=== PATIENT | female | born 1945 | race Caucasian/White ===

== ENCOUNTER → 2019-10-30 12:59 | Outpatient (BNVA) | payer MEDICARE, SELFPAY | PROVIDERS: Family Provider Nurse Practitioner Family; PCP Nurse Practitioner Family; Visit Provider Internal Medicine Rheumatology | DX: M05.79 Rheumatoid arthritis with rheumatoid factor of multiple sites without organ or systems involvement (principal); M15.0 Primary generalized (osteo)arthritis; Z11.1 Encounter for screening for respiratory tuberculosis; Z79.899 Other long term (current) drug therapy | CPT/HCPCS: 71046; 99213 ==

== ENCOUNTER 2019-10-30 14:16 | Outpatient (CLI) | payer MEDICARE, SELFPAY ==
--- NOTE | 2019-10-30 14:27 | XR_ITS ---
WS: [id number] CHEST 2 VIEWS HISTORY: rheumatoid arthritis COMPARISON: 06/23/2010 Lungs: Mild pulmonary hyperinflation. No pneumonia. No pulmonary nodule or mass. No pleural effusion. Small calcific densities in the RIGHT upper chest. Cardiac size: Normal. Mediastinum/Aorta: Mild atherosclerosis aorta. Bones: Normal. XR/XR chest 2V* [id number] IMPRESSION: Stable chest since 06/23/2010. Mild hyperinflation.
== END 2019-10-30 14:17 | disposition home or self-care (01) ==
LOC: RADWPI 14:22
PROVIDERS: Family Provider Nurse Practitioner Family; PCP Nurse Practitioner Family; Visit Provider Internal Medicine Rheumatology
DX: M05.79 Rheumatoid arthritis with rheumatoid factor of multiple sites without organ or systems involvement (principal)
CPT/HCPCS: 71046

== ENCOUNTER → 2020-05-25 11:58 | Outpatient (BNVA) | payer MEDICARE, SELFPAY | PROVIDERS: Family Provider Nurse Practitioner Family; PCP Nurse Practitioner Family; Visit Provider Internal Medicine Rheumatology | DX: M05.79 Rheumatoid arthritis with rheumatoid factor of multiple sites without organ or systems involvement (principal); Z79.899 Other long term (current) drug therapy; Z11.1 Encounter for screening for respiratory tuberculosis; M12.04 Chronic postrheumatic arthropathy [Jaccoud], hand; Z13.820 Encounter for screening for osteoporosis | CPT/HCPCS: 36415; 80076; 82565; 85025; 85651; 86140; 86480; 99214 ==

== ENCOUNTER → 2020-09-14 13:49 | Outpatient (BNVA) | payer MEDICARE, SELFPAY | PROVIDERS: Family Provider Nurse Practitioner Family; PCP Nurse Practitioner Family; Visit Provider Internal Medicine Rheumatology | DX: M05.79 Rheumatoid arthritis with rheumatoid factor of multiple sites without organ or systems involvement (principal); Z79.899 Other long term (current) drug therapy; M12.04 Chronic postrheumatic arthropathy [Jaccoud], hand; M85.80 Other specified disorders of bone density and structure, unspecified site | CPT/HCPCS: 36415; 80076; 82565; 85025; 85651; 86140; 99214 ==

== ENCOUNTER → 2021-01-05 13:24 | Outpatient (BNVA) | payer MEDICARE, SELFPAY | PROVIDERS: Family Provider Nurse Practitioner Family; PCP Nurse Practitioner Family; Visit Provider Internal Medicine Rheumatology | DX: M05.79 Rheumatoid arthritis with rheumatoid factor of multiple sites without organ or systems involvement (principal); Z79.899 Other long term (current) drug therapy; M12.04 Chronic postrheumatic arthropathy [Jaccoud], hand; M85.80 Other specified disorders of bone density and structure, unspecified site; R09.89 Other specified symptoms and signs involving the circulatory and respiratory systems | CPT/HCPCS: 99214 ==

== ENCOUNTER → 2021-10-18 10:29 | Outpatient (BNVA) | payer MEDICARE, SELFPAY | PROVIDERS: Family Provider Nurse Practitioner Family; PCP Nurse Practitioner Family; Visit Provider Internal Medicine Rheumatology | DX: M05.79 Rheumatoid arthritis with rheumatoid factor of multiple sites without organ or systems involvement (principal); Z79.899 Other long term (current) drug therapy | CPT/HCPCS: 80076; 82565; 85025; 86140 ==

== ENCOUNTER → 2021-10-31 15:08 | Outpatient (BNVA) | payer MEDICARE, SELFPAY | PROVIDERS: Family Provider Nurse Practitioner Family; PCP Nurse Practitioner Family; Visit Provider Internal Medicine Rheumatology | DX: M05.79 Rheumatoid arthritis with rheumatoid factor of multiple sites without organ or systems involvement (principal); M12.04 Chronic postrheumatic arthropathy [Jaccoud], hand; Z79.899 Other long term (current) drug therapy; M85.80 Other specified disorders of bone density and structure, unspecified site; Z71.89 Other specified counseling | CPT/HCPCS: 99214 ==

== ENCOUNTER → 2022-02-15 14:25 | Outpatient (BNVA) | payer MEDICARE, SELFPAY | PROVIDERS: Family Provider Nurse Practitioner Family; PCP Nurse Practitioner Family; Visit Provider Internal Medicine Rheumatology | DX: M05.79 Rheumatoid arthritis with rheumatoid factor of multiple sites without organ or systems involvement (principal); M12.04 Chronic postrheumatic arthropathy [Jaccoud], hand; Z79.899 Other long term (current) drug therapy; M85.80 Other specified disorders of bone density and structure, unspecified site; Z71.89 Other specified counseling | CPT/HCPCS: 36415; 80076; 82565; 85025; 86140; 99214 ==

== ENCOUNTER → 2022-06-01 13:36 | Outpatient (BNVA) | payer MEDICARE, SELFPAY | PROVIDERS: Family Provider Nurse Practitioner Family; PCP Nurse Practitioner Family; Visit Provider Internal Medicine Rheumatology | DX: M05.79 Rheumatoid arthritis with rheumatoid factor of multiple sites without organ or systems involvement (principal); Z79.899 Other long term (current) drug therapy; Z71.89 Other specified counseling; M12.00 Chronic postrheumatic arthropathy [Jaccoud], unspecified site; M85.80 Other specified disorders of bone density and structure, unspecified site; K21.9 Gastro-esophageal reflux disease without esophagitis | CPT/HCPCS: 36415; 80076; 82565; 85025; 86140; 99214 ==

== ENCOUNTER → 2022-09-04 14:38 | Outpatient (BNVA) | payer MEDICARE, SELFPAY | PROVIDERS: Family Provider Nurse Practitioner Family; PCP Nurse Practitioner Family; Visit Provider Internal Medicine Rheumatology | DX: M05.79 Rheumatoid arthritis with rheumatoid factor of multiple sites without organ or systems involvement (principal); Z79.899 Other long term (current) drug therapy; Z13.820 Encounter for screening for osteoporosis; Z71.89 Other specified counseling; M12.00 Chronic postrheumatic arthropathy [Jaccoud], unspecified site; M85.80 Other specified disorders of bone density and structure, unspecified site; K21.9 Gastro-esophageal reflux disease without esophagitis | CPT/HCPCS: 36415; 80076; 82565; 85025; 86140; 99214 ==

== ENCOUNTER → 2022-12-12 13:37 | Outpatient (BNVA) | payer MEDICARE, SELFPAY | PROVIDERS: Family Provider Nurse Practitioner Family; PCP Nurse Practitioner Family; Visit Provider Internal Medicine Rheumatology | DX: M05.79 Rheumatoid arthritis with rheumatoid factor of multiple sites without organ or systems involvement (principal); Z79.899 Other long term (current) drug therapy; Z13.820 Encounter for screening for osteoporosis; Z71.89 Other specified counseling | CPT/HCPCS: 36415; 80076; 82565; 85025; 86140; 99214 ==

== ENCOUNTER → 2023-01-25 11:58 | Outpatient (BNVA) | payer MEDICARE, SELFPAY | PROVIDERS: Family Provider Nurse Practitioner Family; PCP Nurse Practitioner; Visit Provider Nurse Practitioner | DX: E03.8 Other specified hypothyroidism (principal); E55.9 Vitamin D deficiency, unspecified | CPT/HCPCS: 80053; 80061; 82306; 82607; 84443 ==

== ENCOUNTER → 2023-03-13 12:58 | Outpatient (BNVA) | payer MEDICARE, SELFPAY | PROVIDERS: Family Provider Nurse Practitioner Family; PCP Nurse Practitioner; Visit Provider Internal Medicine Rheumatology | DX: M05.79 Rheumatoid arthritis with rheumatoid factor of multiple sites without organ or systems involvement (principal); Z79.899 Other long term (current) drug therapy; M19.90 Unspecified osteoarthritis, unspecified site; Z13.820 Encounter for screening for osteoporosis; Z71.89 Other specified counseling | CPT/HCPCS: 36415; 80076; 82565; 85025; 86140; 99214 ==

== ENCOUNTER → 2023-05-15 09:17 | Outpatient (BNVA) | payer MEDICARE, SELFPAY | PROVIDERS: Family Provider Nurse Practitioner Family; PCP Nurse Practitioner; Visit Provider Nurse Practitioner | DX: E03.8 Other specified hypothyroidism (principal); I10 Essential (primary) hypertension | CPT/HCPCS: 80053; 80061; 83036; 84443 ==

== ENCOUNTER → 2023-06-13 13:17 | Outpatient (BNVA) | payer MEDICARE, SELFPAY | PROVIDERS: Family Provider Nurse Practitioner Family; PCP Nurse Practitioner; Visit Provider Internal Medicine Rheumatology | DX: Z79.899 Other long term (current) drug therapy (principal); M05.79 Rheumatoid arthritis with rheumatoid factor of multiple sites without organ or systems involvement; Z13.820 Encounter for screening for osteoporosis; Z71.89 Other specified counseling | CPT/HCPCS: 99214 ==

== ENCOUNTER → 2023-10-24 13:42 | Outpatient (BNVA) | payer MEDICARE, SELFPAY | PROVIDERS: Family Provider Nurse Practitioner Family; PCP Nurse Practitioner; Visit Provider Internal Medicine Rheumatology | DX: Z79.899 Other long term (current) drug therapy (principal); M05.79 Rheumatoid arthritis with rheumatoid factor of multiple sites without organ or systems involvement | CPT/HCPCS: 80076; 82565; 85025; 86140 ==

== ENCOUNTER → 2023-10-30 09:57 | Outpatient (BNVA) | payer MEDICARE, SELFPAY | PROVIDERS: Family Provider Nurse Practitioner Family; PCP Nurse Practitioner; Visit Provider Nurse Practitioner | DX: J30.89 Other allergic rhinitis (principal); J30.2 Other seasonal allergic rhinitis; E03.8 Other specified hypothyroidism; R00.0 Tachycardia, unspecified; I10 Essential (primary) hypertension | CPT/HCPCS: 80048; 80061; 84443 ==

== ENCOUNTER → 2023-12-06 11:36 | Outpatient (BNVA) | payer MEDICARE, SELFPAY | PROVIDERS: Family Provider Nurse Practitioner Family; PCP Nurse Practitioner; Visit Provider Internal Medicine Rheumatology | DX: Z79.899 Other long term (current) drug therapy (principal); M05.79 Rheumatoid arthritis with rheumatoid factor of multiple sites without organ or systems involvement; Z13.820 Encounter for screening for osteoporosis; Z71.89 Other specified counseling | CPT/HCPCS: 80076; 99214 ==

== ENCOUNTER 2024-03-11 09:36 | Inpatient (IN) | payer MEDICARE, SELFPAY ==
[2024-03-11] VITALS (21 sets, daily range): BP systolic 99–141; BP diastolic 59–76; PULSE 70–79; RESP 16–31; TEMP 36.8; O2SAT 89–97; BMI 29.2
--- NOTE | 2024-03-11 09:51 | XRR_ITS ---
PROCEDURE INFORMATION: Exam: XR Chest Exam date and time: 03/11/2024 9:54 AM Age: 78 years old Clinical indication: Cough and dyspnea; Additional info: Dyspnea/cough TECHNIQUE: Imaging protocol: Radiologic exam of the chest. Views: 1 view. COMPARISON: CR XR chest 2V* [id number] 10/30/2019 2:32 PM FINDINGS: Lungs: Unremarkable. No consolidation. Pleural spaces: Unremarkable. No pleural effusion. No pneumothorax. Heart/Mediastinum: Unremarkable. No cardiomegaly. Advanced diffuse vascular calcification noted. Bones/joints: Unremarkable. Soft tissues: Lower chest likely external metallic artifacts are noted. XR/XR chest 1V portable [id number] IMPRESSION: No acute findings.
--- NOTE | 2024-03-11 09:52 | CT_ITS ---
WS: [id number] CT HEAD TECHNIQUE: Noncontrast CT of the head obtained from the skullbase to the vertex. CLINICAL INFORMATION: AMS COMPARISON: None. DLP: 1018.[address] scans at [facility] use at least one of these dose optimization techniques: automated e xposure control; mA and/or kV adjustment per patient size (includes targeted exams where dose is matc hed to clinical indication); or iterative reconstruction. FINDINGS: No evidence of intracranial hemorrhage or mass effect. Ventricular system and basal cisterns are tucker nt. Moderate small vessel changes with moderate parenchymal volume loss. Intracranial vascular calcif ication. No extra-axial fluid collections. Tiny chronic lacunar infarcts in the RIGHT basal ganglia. Paranasal sinuses and mastoid air cells are well aerated. .Normal visualized soft tissues. CT/CT head wo con* [id number] IMPRESSION: 1. No evidence of intracranial hemorrhage or mass effect. 2. Moderate small vessel changes with moderate parenchymal volume loss. 3. Intracranial vascular calcification. 4. No acute intracranial findings.
--- NOTE | 2024-03-11 10:04 | W.ED.WEAKNES ---
HPI - Weakness General: Chief complaint: Weakness Stated complaint: Weakness Time Seen by Provider: 03/11/24 09:44 Source: patient Mode of arrival: ambulatory History of Present Illness: 78-year-old female presents emergency room after some falls recently generalized been very weak. She is confused and disoriented at times she went to the restroom and then just could not get up off the toilet. 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 Patient is awake and alert. She has a history of rheumatoid arthritis she is on Enbrel and methotrexate and also has been intermittently on prednisone. Family reports she has generally been weakening. Complains of some mild dysuria. MD Complaint: generalized weakness Relieving factors: none Exacerbating factors: none Associated symptoms: Reports chills and confusion; Denies chest pain, melena, decreased appetite, diaphoresis, dysuria, easy bruising, fever(s), headache(s), myalgias, nausea, rash, short of breath, syncope or vomiting Review of Systems Const: Reports: chills; Denies: fever(s) or diaphoresis Card: Denies: chest pain or syncope Resp: Denies: dyspnea GI: Denies: abdominal pain, nausea, vomiting or melena : Denies: dysuria, urinary frequency or urinary urgency Musc: Denies: neck pain or back pain Skin/Breast: Denies: rash Neuro: Reports: confusion; Denies: headache(s) Arya/Lymph: Denies: easy bruising PFS ED PFSH: Medical History (Updated 03/11/24 @ 15:53 by Lobo Mcqueen DO) History of cardiovascular stress test in 2009 low risk for coronary events Osteoarthritis Seasonal and perennial allergic rhinitis Tachycardia sinus tachycardia, on metoprolol Essential hypertension Adult onset hypothyroidism Osteopenia after menopause Jaccoud's arthropathy of hand Other assisted (current) drug therapy High risk medication use Surgical History (Updated 03/11/24 @ 14:46 by Mindy Mckeon MD) H/O breast biopsy right, benign Family History (Updated 03/11/24 @ 14:47 by Mindy Mckeon MD) Mother Breast cancer Father CAD (coronary artery disease) Other Diabetes Denies family history of Rheumatoid arthritis Chronic kidney disease (CKD) Systemic lupus erythematosus (SLE) in adult Hypertension Social History Smoking and tobacco/nicotine status: never used tobacco/nicotine Second hand smoke exposure: No Alcohol intake: never Substance/Drug Use: never Adopted: No Caregiver/support person: No Lives independently: Yes Household members: spouse Housing: House Marital status: Number of children: 0 service: No Current occupational status: retired Do you think of yourself as: Straight/Heterosexual Current gender identity: Female Physical Exam Const: COMMON NORMALS: no acute distress GENERAL APPEARANCE: cooperative and comfortable ORIENTATION/CONSCIOUSNESS: Yes awake, Yes oriented to person, Yes oriented to place and Yes oriented to time HENMT: COMMON NORMALS: normocephalic, atraumatic and hearing grossly normal bilaterally HEAD & SCALP: normocephalic and atraumatic Resp: COMMON NORMALS: normal respiratory effort, No retractions, No use of accessory muscles and clear to auscultation bilaterally AUSCULTATION: clear to auscultation bilaterally Cardio: COMMON NORMALS: regular rate, regular rhythm and No murmurs present (Cardio) RATE: regular rate RHYTHM: regular rhythm GI: COMMON NORMALS: Soft to palpation and No hepatosplenomegaly present AUSCULTATION: Yes normoactive bowel sounds PALPATION: Yes Soft to palpation, No Tenderness to palpation present (GI), No Guarding due to palpation present (GI) and Yes No hepatosplenomegaly present Extremity: COMMON NORMALS: normal to inspection, capillary refill normal, no clubbing, cyanosis or edema, no calf tenderness and no pedal edema Neuro: SENSORIUM/ORIENTATION: Yes oriented to person, Yes oriented to place and Yes oriented to time Skin: COMMON NORMALS: no rashes or lesions noted GENERAL SKIN EXAM: no rashes or lesions noted Course Vital Signs: Vital signs: Vital Signs Temperature 98.3 F 03/11/24 09:41 Pulse Rate 76 03/11/24 14:45 Respiratory Rate 18 03/11/24 14:45 Blood Pressure 132/67 03/11/24 14:45 Pulse Oximetry 97 03/11/24 14:45 Oxygen Delivery Me thod Room Air 03/11/24 09:41 MDM - Weakness Medical Decision Making Patient has a mild cystitis mild encephalopathy lactic acid is elevated cultures done given IV fluids her blood pressure was soft initially improved with fluids. Start IV antibiotics and cultures will likely need to hold her methotrexate and Enbrel discussed with hospitalist orders written Medical Records I reviewed the patient's medical records. Lab Data I reviewed the patient's lab results. 03/11/24 11:00 03/11/24 11:00 Radiology Impressions Chest X-Ray 03/11/24 09:51 IMPRESSION: No acute findings. Head CT 03/11/24 09:52 IMPRESSION: 1. No evidence of intracranial hemorrhage or mass effect. 2. Moderate small vessel changes with moderate parenchymal volume loss. 3. Intracranial vascular calcification. 4. No acute intracranial findings. Abdomen/Pelvis CT 03/11/24 10:30 IMPRESSION: 1. Sigmoid diverticulosis. No evidence of acute diverticulitis. 2. Subsegmental atelectasis RIGHT lower lobe. 3. Hepatomegaly with diffuse fatty infiltration of liver. 4. Hydronephrosis in either kidney. 5. Tortuous infrarenal abdominal aorta. 6. No other acute findings. Laboratory Results WBC 4.18 10^3/uL (3.29-11.43) 03/11/24 11:00 RBC 4.83 10^6/uL (3.85-5.65) 03/11/24 11:00 Hgb 15.00 g/dL (11.27-16.99) 03/11/24 11:00 Hct 43.8 % (36-47) 03/11/24 11:00 MCV 90.7 fl (85-98) 03/11/24 11:00 MCH 31.1 pg (27-33) 03/11/24 11:00 MCHC 34.2 g/dL (30-55) 03/11/24 11:00 RDW 16.3 % (12.1-15.1) H 03/11/24 11:00 Plt Count 107 10^3/cmm (157-399) L 03/11/24 11:00 MPV 10.9 fL (7.4-10.4) H 03/11/24 11:00 Lymph % (Auto) Not Reportable 03/11/24 11:00 [place] % (Auto) Not Reportable 03/11/24 11:00 Lymph # (Auto) Not Reportable 03/11/24 11:00 [place] # (Auto) Not Reportable 03/11/24 11:00 Total Counted 100 (0-100) 03/11/24 11:00 Atypical Lymphs % 7.0 % (0-5) H 03/11/24 11:00 Absolute Neutrophils 2.5 10^3/cmm (1.4-6.5) 03/11/24 11:00 Segmented Neutrophils 51 % 03/11/24 11:00 Abs Segm Neuts (Man) 2.1 10/cmm (1.6-7.1) 03/11/24 11:00 Band Neutrophils 8.0 % 03/11/24 11:00 Abs Band Neuts (Man) 0.3 10^3/cmm (0.0-1.2) 03/11/24 11:00 Absolute Lymphocytes 1.3 10^3/cmm (1.2-3.4) 03/11/24 11:00 Lymphocytes (Manual) 23 % 03/11/24 11:00 Monocytes (Manual) 10.0 % 03/11/24 11:00 Absolute Monocytes 0.4 10^3/cmm (0.1-0.6) 03/11/24 11:00 Eosinophils (Manual) 0 % 03/11/24 11:00 Absolute Eosinophils 0.0 10^3/cmm (0.0-0.7) 03/11/24 11:00 Basophils (Manual) 0.0 % 03/11/24 11:00 Absolute Basophils 0.0 10^3/cmm (0.0-0.2) 03/11/24 11:00 Metamyelocytes 1.0 % 03/11/24 11:00 Platelet Estimate Decreased (Normal) L 03/11/24 11:00 Anisocytosis Trace 03/11/24 11:00 Sodium 132 mmol/L (136-145) L 03/11/24 11:00 Potassium 3.7 mmol/L (3.5-5.1) 03/11/24 11:00 Chloride 95 mmol/L (98-107) L 03/11/24 11:00 Carbon Dioxide 23 mmol/L (22-29) 03/11/24 11:00 Anion Gap 17.7 (5-19) 03/11/24 11:00 BUN 29 mg/dL (8-23) H 03/11/24 11:00 Creatinine 1.5 mg/dL (0.5-0.9) H 03/11/24 11:00 GFR Calculation Not Reportable 03/11/24 11:00 Glucose 98 mg/dL (65-115) 03/11/24 11:00 Calculated Osmolality 280 mOsm/kg (285-295) L 03/11/24 11:00 Lactic Acid 2.9 mmol/L (0.5-2.2) H 03/11/24 11:00 Lactic Acid (Sepsis) 1.5 mmol/L (0.5-2.2) 03/11/24 13:50 Calcium 8.1 mg/dL (8.5-10.5) L 03/11/24 11:00 Magnesium 2.2 mg/dL (1.7-2.3) 03/11/24 11:00 Total Bilirubin 1.0 mg/dL (0.15-1.2) 03/11/24 11:00 AST 341 U/L (0-32) H 03/11/24 11:00 ALT 201 U/L (0-33) H 03/11/24 11:00 Alkaline Phosphatase 77 U/L (35-105) 03/11/24 11:00 Troponin T Baseline 60 ng/L (0-10) H 03/11/24 11:00 Troponin T 120 Minute 47.56 ng/L (0-10) H 03/11/24 13:50 Delta Troponin T -12.44 ABS# (0-10) L 03/11/24 13:50 Total Protein 6.2 g/dL (6.6-8.7) L 03/11/24 11:00 Albumin 3.1 g/dL (3.5-5.2) L 03/11/24 11:00 Globulin 3.1 g/dL (1.3-4.6) 03/11/24 11:00 Lipase 163 U/L (13-60) H 03/11/24 11:00 Urine Color Dark yellow (Yellow) 03/11/24 11:58 Urine Appearance Slightly cloudy (CLEAR) 03/11/24 11:58 Urine pH 5 (5-7) 03/11/24 11:58 Ur Specific [place] 1.020 (1.005-1.030) 03/11/24 11:58 Urine Protein 1+ (Negative) H 03/11/24 11:58 Urine Glucose (UA) Norm (Normal) 03/11/24 11:58 Urine Ketones Negative (Negative) 03/11/24 11:58 Urine Blood Neg (Negative) 03/11/24 11:58 Urine Nitrate Negative (Negative) 03/11/24 11:58 Urine Bilirubin Neg (Negative) 03/11/24 11:58 Urine Urobilinogen Norm mg/dL (Negative) 03/11/24 11:58 Ur Leukocyte Esterase 2+ (Negative) H 03/11/24 11:58 Urine RBC 0-4 /hpf (0-2) H 03/11/24 11:58 Urine WBC 40-55 /hpf (0-5) H 03/11/24 11:58 Ur Squamous Epith Cells 0-4 /hpf (0-5) H 03/11/24 11:58 Amorphous Sediment Not Reportable 03/11/24 11:58 Urine Bacteria 1+ /hpf (NONE) H 03/11/24 11:58 Hepatitis A IgM Ab Non-reactive (Nonreactive) 03/11/24 11:00 Hep Bs Antigen Non-reactive (Nonreactive) 03/11/24 11:00 Hep B Core IgM Ab Non-reactive (Nonreactive) 03/11/24 11:00 Hepatitis C Antibody Non-reactive (Nonreactive) 03/11/24 11:00 All radiology interpretation(s) finalized by discharge Discharge Plan Discharge Patient Disposition: Admitted As Inpatient Admit Provider: Mindy Mckeon Clinical Impression: Seropositive rheumatoid arthritis of multiple joints, Cystitis, Elevated transaminase level Condition: Stable Coding Level of Care Code ED Research Quality Assurance Analyst for Ruby Bassett
--- NOTE | 2024-03-11 10:18 | ECG_ITS ---
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 Measurements Intervals [place] Rate: 77 P: -9 [place]: 145 QRS: -29 QRSD: 74 T: 150 QT: 405 QTc: 461 Interpretive Statements SINUS RHYTHM LOW QRS VOLTAGE IN PRECORDIAL LEADS [QRS DEFLECTION < 1.0 mV IN CHEST LEADS] POSSIBLE ANTERIOR MYOCARDIAL INFARCTION , PROBABLY OLD [30 ms Q WAVE IN V3/V4, OR R < 0.2 mV IN V4] INFERIOR MYOCARDIAL INFARCTION , PROBABLY OLD [40+ ms Q WAVE AND/OR ST/T ABNORMALITY IN II/aVF] No previous ECG available for comparison Electronically Signed On 03-11-2024 17:20:05 CDT by Magan Guzman M.D. [id number] f
--- NOTE | 2024-03-11 10:30 | CT_ITS ---
WS: [id number] CT ABDOMEN PELVIS TECHNIQUE: Noncontrast CT of the abdomen and pelvis with coronal and sagittal reformatted images. CLINICAL INFORMATION: Abdominal pain COMPARISON: None. DLP: 699.[address] scans at [facility] use at least one of these dose optimization techniques: automated e xposure control; mA and/or kV adjustment per patient size (includes targeted exams where dose is matc hed to clinical indication); or iterative reconstruction. FINDINGS: Subsegmental atelectasis RIGHT lower lobe. Diffuse fatty infiltration of the liver. Normal spleen. Normal GE junction. Noncontrast pancreas appears normal. Splenic artery calcification. Aortic calcification. Tortuous abdominal aorta. Adrenal glands are normal. No hydronephrosis in either kidn ey. Small increased attenuation RIGHT renal cyst likely hemorrhagic or proteinaceous. Small fat-conta ining umbilical hernia. A few prominent LEFT inguinal lymph nodes likely reactive. Advanced spondylit ic changes lumbar spine. Chronic anterior wedging at L2. Sigmoid diverticulosis. No evidence of acute diverticulitis. CT/CT abdomen pelvis wo con [id number] IMPRESSION: 1. Sigmoid diverticulosis. No evidence of acute diverticulitis. 2. Subsegmental atelectasis RIGHT lower lobe. 3. Hepatomegaly with diffuse fatty infiltration of liver. 4. Hydronephrosis in either kidney. 5. Tortuous infrarenal abdominal aorta. 6. No other acute findings.
--- NOTE | 2024-03-11 10:37 | PC.PHAR ---
PT UNSURE IF SHE TOOK HER MORNING MEDICATIONS BUT IS SURE SHE TOOK ALL HER MEDICATIONS YESTERDAY.
--- NOTE | 2024-03-11 11:35 | ECG_ITS ---
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 Measurements Intervals [place] Rate: 78 P: 24 AL: 156 QRS: -44 QRSD: 76 T: 118 QT: 375 QTc: 429 Interpretive Statements SINUS RHYTHM LEFT AXIS DEVIATION [QRS AXIS < -30] LOW QRS VOLTAGE IN PRECORDIAL LEADS [QRS DEFLECTION < 1.0 mV IN CHEST LEADS] POSSIBLE ANTERIOR MYOCARDIAL INFARCTION , PROBABLY OLD [30 ms Q WAVE IN V3/V4, OR R < 0.2 mV IN V4] Compared to ECG 03/11/2024 10:18:11 Left-axis deviation now present Myocardial infarct finding still present Electronically Signed On 03-11-2024 17:23:42 CDT by Magan Guzman M.D. [id number]
[2024-03-11 11:54] LABS: Hematocrit 43.8 % (36-47); Mean Corpuscular HGB Conc 34.2 g/dL (30-55); Mean Corpuscular Hemoglobin 31.1 pg (27-33); Mean Corpuscular Volume 90.7 fl (85-98); Mean Platelet Volume 10.9 fL (7.4-10.4); Platelet Count 107 10^3/cmm (157-399); Red Blood Count 4.83 10^6/uL (3.85-5.65); Red Cell Distribution Width 16.3 % (12.1-15.1); White Blood Count 4.18 10^3/uL (3.29-11.43)
[2024-03-11 12:18] LABS: Lactic Sepsis W/Reflex 2.9 mmol/L (0.5-2.2)
[2024-03-11 12:20] LABS: Troponin(5th) Baseline 60 ng/L (0-10)
[2024-03-11 12:27] LABS: Alanine Aminotransferase 201 U/L (0-33); Albumin Level 3.1 g/dL (3.5-5.2); Alkaline Phosphatase 77 U/L (35-105); Anion Gap 17.7 (5-19); Aspartate Amino Transferase 341 U/L (0-32); Blood Urea Nitrogen 29 mg/dL (8-23); Calcium 8.1 mg/dL (8.5-10.5); Carbon Dioxide 23 mmol/L (22-29); Chloride 95 mmol/L (98-107); Creatinine Clr Calc Pharmacy 28.8337; Globulin 3.1 g/dL (1.3-4.6); Glucose 98 mg/dL (65-115); Lipase 163 U/L (13-60); Magnesium 2.2 mg/dL (1.7-2.3); Osmolality Calculated 280 mOsm/kg (285-295); Potassium 3.7 mmol/L (3.5-5.1); Sodium 132 mmol/L (136-145); Total Protein 6.2 g/dL (6.6-8.7)
[2024-03-11 12:35] LABS: Add Urine Culture? Yes; Add Urine Microscopic? YES; Bacteria Urine 1+ /hpf; Bilirubin Urine Neg (Negative); Blood Urine Neg (Negative); Glucose Urine UA Norm (Normal); Ketones Urine Negative (Negative); Leukocyte Esterase Urine 2+ (Negative); Nitrate Urine Negative (Negative); Protein Urine 1+ (Negative); RBC Urine 0-4 /hpf (0-2); Squamous Epithelial Cell Urine 0-4 /hpf (0-5); Urine Appearance Slightly Cloudy (CLEAR); Urine Color Dark Yellow (Yellow); Urobilinogen Urine Norm (Negative); WBC Urine 40-55 /hpf (0-5); pH Urine 5 (5-7)
[2024-03-11] MEDS: levofloxacin-dextrose 5 % 750 MG/150 ML PREMIX 100 MG IV (12:40)
[2024-03-11] MEDS: sodium chloride 0.9% 1,503 ML 999 ML IV (12:40)
[2024-03-11 12:59] LABS: Slide Review Slide Review Perform
[2024-03-11 13:00] LABS: Absolute Segmented Neutrophil 2.1 10/cmm (1.6-7.1); Band Neutrophils Absolute 0.3 10^3/cmm (0.0-1.2); Eosinophils 0 %; Lymphocytes 23 %; Lymphocytes Absolute 1.3 10^3/cmm (1.2-3.4); Monocytes Absolute 0.4 10^3/cmm (0.1-0.6); Segmented Neutrophils 51 %; Total Cells Counted 100 (0-100)
[2024-03-11 13:01] LABS: Absolute Neutrophil 2.5 10^3/cmm (1.4-6.5); Anisocytosis Trace; Platelet Estimate Decreased (Normal)
[2024-03-11 13:27] LABS: Reflex Lactate Order REFLEX LACTIC ORDERD
[2024-03-11 13:53] LABS: Hepatitis A Antibody IgM Non-Reactive (Nonreactive); Hepatitis B Surface Antigen Non-Reactive (Nonreactive); Hepatitis C Virus Antibody Non-Reactive (Nonreactive)
[2024-03-11 14:11] LABS: Lactic Acid level (Lactate) 1.5 mmol/L (0.5-2.2)
[2024-03-11 14:13] LABS: Troponin 5 2HR 47.56 ng/L (0-10); Troponin 5 2HR Delta -12.44 ABS# (0-10)
--- NOTE | 2024-03-11 14:41 | PM.HP ---
Providers/Chief Complaint Admitting Physician: Mindy Mckeon MD Primary Care Provider: Charlie Moscoso, ANIMAL SHELTER MANAGER-C Chief Complaint: Weakness History of Present Illness Abraham Santa is a 78 year old female who presents to the emergency room with chief complaint of weakness. She was on the toilet this morning and was so weak she was not able to get herself up. She has been having progressively worsening generalized weakness for maybe 3 weeks. She had started using her 's walker to help her some. She has had weakness involving both her arms and her legs. One side is not weaker than the other. She has noticed particularly that she has difficulty getting herself up from seats. Even using her arms for support she does cannot seem to get up. She has had a few falls. One of them occurred when she was taking her dog to the vet and another a day or so later. She had a very large bruise to her left lower extremity associated with the falls. She required EMS assistance to get her up after at least one of them. She denies any acute injury beyond the bruising. No reported fevers. She has not had any headache or vision changes. She has a known history of rheumatoid arthritis for which she is chronically on Enbrel and prednisone. She takes 5 mg of prednisone daily. Does not recall the last time she took prednisone burst for an acute RA flare. She had been on methotrexate but this was stopped in November of this year due to elevation in liver enzymes. She has had a nonproductive cough for several weeks. Associated with this is some postnasal drainage. She carries a diagnosis of seasonal allergies. No sore throat or sores in her mouth. She has not had any difficulty breathing despite the cough. She has no history of pulmonary disease or known coronary artery disease. No reports of any chest pain. No hemoptysis. She denies abdominal pain. She has had diarrhea for around 3 weeks now. Stools are loose and watery and occur pretty much every time she goes to the bathroom somewhere between 5 and 10 times a day. No blood has been noted in her stools. She does not report any dysuria, urinary frequency or hematuria. Her rheumatoid arthritis is generally doing well without any acute flareup of her joints. She has noticed some facial swelling. No new sores. 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 She sleeps when he sleeps which is usually during the day and admits that she has not been resting well for some time. She does have somebody that comes out to the house from [employer] who helps her (Hellen at [phone]). Patient's daughter Roseline Santa lives out of state though some family is coming to assist. Roseline can be reached at [phone]. Normally Mrs. Santa can ambulate okay and attend to her ADLs without difficulty. She does not recall any episodes of acute vision changes or speech difficulties. No known history of stroke, coronary artery disease or kidney disease. She has been taking her medications as prescribed with no medication changes lately other than discontinuation of methotrexate in November due to elevation in liver enzymes. Workup in the emergency room today revealed evidence of an abnormal urinalysis there was some epithelial cells, soft blood pressures, elevated lactic acid level at 2.9, low platelets, elevation in BUN and creatinine from prior values and some mild hyponatremia in addition to elevation in lipase and transaminases. Baseline troponin was noted to be elevated at 60 though 2-hour delta demonstrated a downward trend. Patient was noted to have some oxygen saturations into the upper 80s and was transiently on oxygen therapy at 2 L by nasal cannula while in the emergency room. Patient denies any history of alcohol or drug use or smoking. She was treated empirically with Levaquin and some IV fluids and request was made for admission for further evaluation and treatment. On focused questioning, Mrs. Santa does admit to having removed a couple of ticks from her this year but not many. Has not had any other sick contacts to speak of beyond her . The weakness was her primary reason for coming in today followed by concerns about the ongoing diarrhea, facial swelling, persistent cough and general decline over the last few weeks. Review of Systems General: Reports: Other (ROS as per HPI or as otherwise noted here) Medications/Allergies Home Medications Medication Instructions Recorded Confirmed Last Taken Type aspirin 81 mg tablet,delayed 81 mg PO QDAY 10/30/19 03/11/24 03/10/24 History release cetirizine 10 mg tablet 10 mg PO DAILY #30 tabs 10/30/23 03/11/24 03/10/24 Rx levothyroxine 50 mcg tablet 50 mcg PO DAILY #90 tabs 10/30/23 03/11/24 03/10/24 Rx metoprolol tartrate 50 mg tablet 50 mg PO TID #90 tabs 10/30/23 03/11/24 03/10/24 Rx etanercept 50 mg/mL (1 mL) 50 mg SUBCUT .Q7days #4 mL 12/06/23 03/11/24 03/07/24 Rx subcutaneous syringe (Enbrel) prednisone 20 mg tablet See Rx Instructions PO .COMPLEX 03/04/24 03/11/24 Unknown Rx PRN joint pain flare #30 tabs prednisone 5 mg tablet 5 mg PO DAILY #30 tabs 03/04/24 03/11/24 03/10/24 Rx folic acid 1 mg tablet 1 mg PO DAILY 03/11/24 03/11/24 03/10/24 History methotrexate sodium 2.5 mg tablet See Rx Instructions .Route .COMPLEX 03/11/24 03/11/24 Unknown History multivitamin-ferrous 1 tab PO QAM 03/11/24 03/11/24 03/10/24 History fumarate-folic acid 18 mg-400 mcg tablet (Complete Multivitamin-Multimineral) omega 2-dku-[id number]-fish oil 1,000 mg 1 cap PO DAILY 03/11/24 03/11/24 03/10/24 History (120 mg-180 mg) capsule (Fish Oil) pantoprazole 20 mg tablet,delayed See Rx Instructions .Route .COMPLEX 03/11/24 03/11/24 03/10/24 History release Allergies Allergy/AdvReac Type Severity Reaction Status Date / Time No Known Allergies Allergy Verified 12/06/23 11:57 PFSH Acute PFSH: Medical History (Updated 03/11/24 @ 19:01 by Mindy Mckeon MD) Seropositive rheumatoid arthritis of multiple joints Diagnosed 2003, on steroids and DMARD therapy History of cardiovascular stress test in 2009 low risk for coronary events Osteoarthritis Seasonal and perennial allergic rhinitis Tachycardia sinus tachycardia, on metoprolol Essential hypertension Adult onset hypothyroidism Osteopenia after menopause Jaccoud's arthropathy of hand Other skilled nursing (current) drug therapy High risk medication use Enbrel and prednisone 03/2024 Surgical History (Updated 03/11/24 @ 14:46 by Mindy Mckeon MD) H/O breast biopsy right, benign Family History (Updated 03/11/24 @ 14:47 by Mindy Mckeon MD) Mother Breast cancer Father CAD (coronary artery disease) Other Diabetes Denies family history of Rheumatoid arthritis Chronic kidney disease (CKD) Systemic lupus erythematosus (SLE) in adult Hypertension Social History Smoking and tobacco/nicotine status: never used tobacco/nicotine Second hand smoke exposure: No Alcohol intake: never Substance/Drug Use: never Adopted: No Caregiver/support person: No Lives independently: Yes Household members: spouse Housing: House Marital status: Number of children: 0 service: No Current occupational status: retired Do you think of yourself as: Straight/Heterosexual Current gender identity: Female Vitals/I&O/Wt Last Vital Signs Temp 98.3 F 03/11/24 09:41 Pulse 74 03/11/24 13:35 Resp 29 H 03/11/24 13:35 BP 127/66 03/11/24 13:35 Pulse Ox 91 03/11/24 13:35 O2 Del Method Room Air 03/11/24 09:41 03/10/24 03/11/24 03/11/24 22:59 06:59 14:59 Intake Total 150 / 150 Balance 150 / 150 Weight last 48 hrs Weight 72.575 kg Physical Exam Narrative: Patient is awake and alert, able to provide history. She looks a bit older than stated age and like she does not feel well. She has some chronic skin changes noted to her head and neck area. Of particular prominence are indented areas at the bridge of her nose where her glasses typically set. She says that it has been this way for some years but is more prominent currently with the facial edema she has been experiencing lately. Nasopharynx with some clear rhinorrhea noted. Extraocular movements are intact. Mucous membranes are slightly dry oral pharyngeally. Unable to fully visualize posterior oropharynx but looks to have some postnasal drainage in what I can see. Neck is supple without elevated JVD noted. No nuchal rigidity. Lungs are clear to auscultation without any rales rhonchi or wheezes noted though she does have a frequent wet sounding cough that is nonproductive during the course of my examination. Cardiovascular exam reveals a regular rhythm. Pulses are 1-2+ at wrists and dorsalis pedis bilaterally. Capillary refill 2 to 3 seconds. Abdomen is soft, nontender with positive bowel sounds. No flank tenderness. No suprapubic tenderness. Extremities without pitting edema. Left lower extremity with extensive bruising more laterally from ankle to knee and then again on the medial side of the foot in line with the first metatarsal region. Leg is not significantly tender to palpation. Skin overall is dry with some chronic sun exposure changes. Handgrip is equal. Ankle pumps are equal. Strength does seem weaker proximally at shoulders and hamstrings. Some muscle wasting is appreciated but not to what I would consider a pathologic degree. Toes are downgoing. No abnormal movements. Gait was not assessed. Data 03/11/24 11:00 03/11/24 11:00 Other Labs: Radiology Impressions Chest X-Ray 03/11/24 09:51 IMPRESSION: No acute findings. Head CT 03/11/24 09:52 IMPRESSION: 1. No evidence of intracranial hemorrhage or mass effect. 2. Moderate small vessel changes with moderate parenchymal volume loss. 3. Intracranial vascular calcification. 4. No acute intracranial findings. Abdomen/Pelvis CT 03/11/24 10:30 IMPRESSION: 1. Sigmoid diverticulosis. No evidence of acute diverticulitis. 2. Subsegmental atelectasis RIGHT lower lobe. 3. Hepatomegaly with diffuse fatty infiltration of liver. 4. Hydronephrosis in either kidney. 5. Tortuous infrarenal abdominal aorta. 6. No other acute findings. Laboratory Results WBC 4.18 10^3/uL (3.29-11.43) 03/11/24 11:00 RBC 4.83 10^6/uL (3.85-5.65) 03/11/24 11:00 Hgb 15.00 g/dL (11.27-16.99) 03/11/24 11:00 Hct 43.8 % (36-47) 03/11/24 11:00 MCV 90.7 fl (85-98) 03/11/24 11:00 MCH 31.1 pg (27-33) 03/11/24 11:00 MCHC 34.2 g/dL (30-55) 03/11/24 11:00 RDW 16.3 % (12.1-15.1) H 03/11/24 11:00 Plt Count 107 10^3/cmm (157-399) L 03/11/24 11:00 MPV 10.9 fL (7.4-10.4) H 03/11/24 11:00 Lymph % (Auto) Not Reportable 03/11/24 11:00 [place] % (Auto) Not Reportable 03/11/24 11:00 Lymph # (Auto) Not Reportable 03/11/24 11:00 [place] # (Auto) Not Reportable 03/11/24 11:00 Total Counted 100 (0-100) 03/11/24 11:00 Atypical Lymphs % 7.0 % (0-5) H 03/11/24 11:00 Absolute Neutrophils 2.5 10^3/cmm (1.4-6.5) 03/11/24 11:00 Segmented Neutrophils 51 % 03/11/24 11:00 Abs Segm Neuts (Man) 2.1 10/cmm (1.6-7.1) 03/11/24 11:00 Band Neutrophils 8.0 % 03/11/24 11:00 Abs Band Neuts (Man) 0.3 10^3/cmm (0.0-1.2) 03/11/24 11:00 Absolute Lymphocytes 1.3 10^3/cmm (1.2-3.4) 03/11/24 11:00 Lymphocytes (Manual) 23 % 03/11/24 11:00 Monocytes (Manual) 10.0 % 03/11/24 11:00 Absolute Monocytes 0.4 10^3/cmm (0.1-0.6) 03/11/24 11:00 Eosinophils (Manual) 0 % 03/11/24 11:00 Absolute Eosinophils 0.0 10^3/cmm (0.0-0.7) 03/11/24 11:00 Basophils (Manual) 0.0 % 03/11/24 11:00 Absolute Basophils 0.0 10^3/cmm (0.0-0.2) 03/11/24 11:00 Metamyelocytes 1.0 % 03/11/24 11:00 Platelet Estimate Decreased (Normal) L 03/11/24 11:00 Anisocytosis Trace 03/11/24 11:00 Sodium 132 mmol/L (136-145) L 03/11/24 11:00 Potassium 3.7 mmol/L (3.5-5.1) 03/11/24 11:00 Chloride 95 mmol/L (98-107) L 03/11/24 11:00 Carbon Dioxide 23 mmol/L (22-29) 03/11/24 11:00 Anion Gap 17.7 (5-19) 03/11/24 11:00 BUN 29 mg/dL (8-23) H 03/11/24 11:00 Creatinine 1.5 mg/dL (0.5-0.9) H 03/11/24 11:00 GFR Calculation Not Reportable 03/11/24 11:00 Glucose 98 mg/dL (65-115) 03/11/24 11:00 Calculated Osmolality 280 mOsm/kg (285-295) L 03/11/24 11:00 Lactic Acid 2.9 mmol/L (0.5-2.2) H 03/11/24 11:00 Lactic Acid (Sepsis) 1.5 mmol/L (0.5-2.2) 03/11/24 13:50 Calcium 8.1 mg/dL (8.5-10.5) L 03/11/24 11:00 Magnesium 2.2 mg/dL (1.7-2.3) 03/11/24 11:00 Total Bilirubin 1.0 mg/dL (0.15-1.2) 03/11/24 11:00 AST 341 U/L (0-32) H 03/11/24 11:00 ALT 201 U/L (0-33) H 03/11/24 11:00 Alkaline Phosphatase 77 U/L (35-105) 03/11/24 11:00 Troponin T Baseline 60 ng/L (0-10) H 03/11/24 11:00 Troponin T 120 Minute 47.56 ng/L (0-10) H 03/11/24 13:50 Delta Troponin T -12.44 ABS# (0-10) L 03/11/24 13:50 Total Protein 6.2 g/dL (6.6-8.7) L 03/11/24 11:00 Albumin 3.1 g/dL (3.5-5.2) L 03/11/24 11:00 Globulin 3.1 g/dL (1.3-4.6) 03/11/24 11:00 Lipase 163 U/L (13-60) H 03/11/24 11:00 Urine Color Dark yellow (Yellow) 03/11/24 11:58 Urine Appearance Slightly cloudy (CLEAR) 03/11/24 11:58 Urine pH 5 (5-7) 03/11/24 11:58 Ur Specific [place] 1.020 (1.005-1.030) 03/11/24 11:58 Urine Protein 1+ (Negative) H 03/11/24 11:58 Urine Glucose (UA) Norm (Normal) 03/11/24 11:58 Urine Ketones Negative (Negative) 03/11/24 11:58 Urine Blood Neg (Negative) 03/11/24 11:58 Urine Nitrate Negative (Negative) 03/11/24 11:58 Urine Bilirubin Neg (Negative) 03/11/24 11:58 Urine Urobilinogen Norm mg/dL (Negative) 03/11/24 11:58 Ur Leukocyte Esterase 2+ (Negative) H 03/11/24 11:58 Urine RBC 0-4 /hpf (0-2) H 03/11/24 11:58 Urine WBC 40-55 /hpf (0-5) H 03/11/24 11:58 Ur Squamous Epith Cells 0-4 /hpf (0-5) H 03/11/24 11:58 Amorphous Sediment Not Reportable 03/11/24 11:58 Urine Bacteria 1+ /hpf (NONE) H 03/11/24 11:58 Hepatitis A IgM Ab Non-reactive (Nonreactive) 03/11/24 11:00 Hep Bs Antigen Non-reactive (Nonreactive) 03/11/24 11:00 Hepatitis C Antibody Non-reactive (Nonreactive) 03/11/24 11:00 Micro: Microbiology 03/11/24 11:00 Blood Culture - Preliminary Blood SPECIMEN COLLECTED 03/11/24 11:00 Blood Culture - Preliminary Blood SPECIMEN COLLECTED A&P Assessment and plan (1) Generalized weakness: Primary presenting symptoms today that has been progressively worsening over the last 3 to 4 weeks. Based on available information it seems to be more proximal muscle weakness involving upper and lower extremities. She is chronically on prednisone therapy so myopathy is a consideration. There is some loss of muscle mass but musculature is not particularly tender and in fact her joints are doing well at this time. Other inflammatory/immune processes such as myositis, PMR and the like could be considered. The fact that she has not been focusing on caring for herself indifference to caring for her who is on hospice also very likely contributor to some degree if not primary. There are abnormalities in the labs as outlined below that suggest potential for infectious or other systemic etiology. Seems less likely based on available information to be focal neurovascular event. She does have a chronic cough over the same period of time that is a bit concerning though I think is associated with allergies. Do not see other evidence of ascending symptoms and DTRs are weak but symmetrical at this time. No associated difficulty breathing beyond the cough. Weakness today was such that she was again unable to get herself up even attempting to use her arms. (2) Elevated transaminase level: Increase in AST and ALT without elevated bilirubin or alkaline phosphatase. Inflammatory, infectious, vascular and other etiologies within the differential. CT imaging of the abdomen demonstrated fatty liver. No known history of alcohol use or changes in medications lately. Initial thought was that this may be related to methotrexate but she has been off of it since November of this year due to elevation in transaminases per record review and her report. Tickborne infection, acute hepatitis, among other infections are considerations. With generalized weakness progressively worsening over the last few weeks muscular disease additionally within differential diagnosis as is cardiovascular disease. (3) Diarrhea: Diarrhea present for several weeks with 5-10 loose stools per day. With immunocompromise infectious source has to be considered. Cannot rule out malabsorption or other causes at this time. Likely a contributing factor to dehydration and acute kidney injury contributing to #1 progressively worsening over the last few weeks. (4) Acute kidney injury: Baseline creatinine 0.8-0.9 on review of labs from the past year. Value today 1.5 with BUN of 29. I suspect this is secondary to volume depletion from GI losses with reported diarrhea. Could be in part related to infection of either GI or urinary origin. Other than prednisone do not see obvious medications as potential contributors. Certainly could be a factor in the generalized weakness she is experiencing along with associated hyponatremia and hypochloremia both of which are mild. Has a normal anion gap. (5) Thrombocytopenia: Present on admission. No prior history of low platelets. Not currently on methotrexate which was stopped earlier this year due to elevated liver enzymes. She is on chronic aspirin therapy and also takes prednisone and PPI among other medications listed below. Viral or even bacterial infection a consideration in addition to medications. Platelet consumption from large bruising to her left lower extremity also within differential. No active bleeding at this time. (6) Elevated lipase: With initial value at 163. Has no associated abdominal pain or back pain but has had diarrhea for several weeks. Also with a persistent cough. Noncontrasted CT of the abdomen and pelvis did not reveal any abnormalities in region of pancreas. Cannot rule out primary pancreatitis given diarrhea but lack of other symptoms makes me think that this is less likely. May be secondary changes along the GI tract from either inflammatory, infectious or vascular etiology contributing. With increased creatinine from baseline imaging with contrast less than ideal presently. (7) Elevated troponin: Elevated baseline troponin with negative trending troponin delta after 2 hours. No report of chest pain. Has nonspecific EKG changes. No known history of coronary artery disease. Primary risk factors include history of RA and hypertension along with family history. Does take a baby aspirin daily. (8) Persistent cough for 3 weeks or longer: Cough predominantly nonproductive though at times with some phlegm, no hemoptysis has been present for about 3 weeks. This may be due to seasonal allergies based on clinical exam but also could be related to reflux. With unremarkable chest x-ray, lack of JVD and other evidence on physical exam of volume overload seems less likely to be from pulmonary edema but that is also within differential. Bacterial infection is a consideration as is viral. With other reported weakness, recurrent cough could be indication of aspiration/weak and pharyngeal muscles. No associated pleuritic or other chest pain. Does not feel particularly short of breath. (9) Abnormal urinalysis: Present on admission with positive leukocyte esterase and 40-55 white blood cells though also with some epithelial cells. She denies any urinary symptoms to speak of. Abnormalities could be related to reported history of diarrhea multiple times a day. Clinically with no urinary symptoms seems less likely to be primary source of presentation of weakness though certainly within the differential. She is status post 1 dose of Levaquin in the emergency room. Urine culture has been collected and is pending. (10) Seropositive rheumatoid arthritis of multiple joints: Currently doing well without any acute flareup of her joints by history. Is managed with prednisone and Enbrel. She had previously been on methotrexate but stopped it in November of this year secondary to elevation in liver enzymes. Follows with Dr. Carmen in rheumatology. Not known to have any pulmonary or cardiac involvement with her rheumatoid arthritis from review of clinic records. (11) High risk medication use: Chronically on steroids, 5 mg of prednisone daily. Has prescription for steroid burst to use for an acute RA flare but cannot recall the last time that she has taken it. She is on Enbrel with last dose this past Sunday, 2 days ago (2 days prior to admission). At risk of acute adrenal insufficiency under sufficiently stressful clinical condition. Immunocompromised broadening differential for presentation as well. (12) Essential hypertension: Primary hypertension potentially with a component related to chronic steroid use chronically managed with beta-blockade, had some lower range of normal blood pressures noted in the emergency room managed with fluids but had taken her usual medications today prior to presentation (13) Adult onset hypothyroidism: History of acquired hypothyroidis, on chronic levothyroxine, normal TSH value in October of this year (14) Tachycardia: History of sinus tachycardia managed with beta-blockade, review of previous records indicates likely associated with hypothyroidism (15) Seasonal and perennial allergic rhinitis: Chronic diagnosis which appears to be acutely exacerbated based on current examination likely contributing to cough, chronically on cetirizine Plan Elevated lactic acid, improved with hydration 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 Recurrent falls lately with hematoma but no known fractures Inpatient admission Check CK level PT, OT and speech evaluations IV fluids Check PT and INR, repeat CBC in am Tick panel is pending Hepatitis panel is pending Send stool studies Check baseline sed rate and CRP Repeat chemistries and lipase in am For now will try regular diet and monitor how she tolerates Continue serial cardiac enzymes and EKGs Check Echo Monitor I&Os Telemetry monitoring for at least the first 24 to 48 hours evaluating for arrthyhmia or acute clinical change Check Respiratory panel Empiric doxycycline currently given tick season Add flonase Continue home cetirizine PRN breathing treatments Status post one dose of levaquin in ED Follow up pending urine and blood cultures Status post Enbrel on Sunday03/09/24 Continuing prednisone currently at usual 5 mg dosing thouigh may have to consider holding is other source for weakness not identified PRN hydrocortisone given risk of acute adrenal insufficiency Continue metoprolol at a lower dosing and frequency than usual home schedule given soft blood pressures Continue home levothyroxine VTE prophylaxis: SCDs, not pharmacological with low platelets and large hematoma LLE GI Prophylaxis: PPI Antibiotics: s/p Levaquin x 1 dose 03/11; doxycycline started 03/11 for possible tick infection Pending studies: CK level, PT, INR, tick panel, hepatitis panel, sed rate, CRP, stool studies, respiratory panel, echocardiogram, 6-hour troponin, PT/OT/ST evaluations and a.m. labs ordered for 03/12 Telemetry: Currently ordered for monitoring of arrhythmias at x 24 to 48 hours particular given history of sinus tachycardia managed with beta-blockade in addition to presentation [place]: not currently indicated Line(s): peripheral IVs Disposition plan: Home with outpatient follow up to primary care and likely rheumatology anticipated. 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 Will need to be seen before the sedates. Depending on clinical course may benefit from outpatient therapies and assistance with medications in the home setting Code Status: Full Code Supportive care otherwise Discussed concerns and plans of care with nursing staff as described Findings, concerns and plans were discussed with patient and she was given an opportunity to ask questions Attestations Medical Necessity Statement*: Anticipated stay greater than two midnights in this 78-year-old with a history of rheumatoid arthritis manage chronically currently with prednisone and Enbrel. Last dose of Enbrel was 2 days ago. She presents with several weeks of clinical decline as outlined above. She has multiple abnormalities in labs and weakness to the extent that she was unable to get up today on her own. She is at high risk of rapid clinical decline given her immunocompromise status from high risk medication use combined with concerning indices such as elevated lactic acid, low platelets, elevated liver enzymes, increased BUN and creatinine from baseline, elevated baseline troponin, elevated lipase, abnormal urinalysis and low albumin level. Currently requiring IV fluids, antibiotic treatment, serial laboratory studies and other evaluations as described above. Coding Level of Care Code 70963 High Time for a total of 85 minutes, includes reviewing past or interval history, examining/interviewing patient, placing orders, discussing plan of care with staff and documenting encounter Diagnoses Generalized weakness R53.1 Elevated transaminase level R74.01 Diarrhea R19.7 Acute kidney injury N17.9 Thrombocytopenia D69.6 Elevated lipase R74.8 Elevated troponin R79.89 Persistent cough for 3 weeks or longer R05.3 Abnormal urinalysis R82.90 Seropositive rheumatoid arthritis of multiple joints M05.79 High risk medication use Z79.899 Essential hypertension I10 Adult onset hypothyroidism E03.8 Tachycardia R00.0 Seasonal and perennial allergic rhinitis J30.89; J30.2
[2024-03-11 15:42] LABS: Hepatitis B Core IgM Non-Reactive (Nonreactive)
--- NOTE | 2024-03-11 15:44 | ECG_ITS ---
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 Measurements Intervals Nemo Rate: 73 P: 34 NJ: 165 QRS: -35 QRSD: 72 T: 131 QT: 383 QTc: 423 Interpretive Statements SINUS RHYTHM PATTERN CONSISTENT WITH PULMONARY DISEASE INFERIOR MYOCARDIAL INFARCTION , PROBABLY OLD [40+ ms Q WAVE AND/OR ST/T ABNORMALITY IN II/aVF] Compared to ECG 03/11/2024 11:35:05 Left-axis deviation no longer present Myocardial infarct finding still present Electronically Signed On 03-11-2024 17:23:06 CDT by Magan Guzman M.D. [id number]
--- NOTE | 2024-03-11 17:36 | PC.NURSE ---
When the patient would fall asleep in the ER, her oxygen saturation numbers would drop to 88 or 89. I did not capture those numbers when entering vitals apparently. Since this continued to occur during her time in the ER since she would doze off and on quite a bit in the ER I placed the patient on 2 liters of oxygen. Patient does not usually use oxygen and may not need the oxygen at all unless when she falls asleep she may need to be on oxygen.
--- NOTE | 2024-03-11 17:44 | USCV_ITS ---
Abraham Santa Age: 78 Gender: F : 1945 Exam Date: 03/11/2024 19:15 Ordering Phys: Mindy Mckeon MD Technologist: RAMY Exam Location: [facility] [place] Indication: weakness, falls, history of rheumatoid arthritis on steroids / enbrel, low O2. BP: 113 / 67 HR: 63 Rhythm: Sinus Technical Quality: Adequate MEASUREMENTS (Male / Female) Normal Values 2D ECHO LV Diastolic Diameter PLAX 4.1 cm 4.2 - 5.9 / 3.9 - 5.3 cm IVS Diastolic Thickness 1.7 cm 0.6 - 1.0 / 0.6 - 0.9 cm IVS Systolic Thickness 2.4 cm LVPW Diastolic Thickness 1.7 cm 0.6 - 1.0 / 0.6 - 0.9 cm LVPW Systolic Thickness 1.2 cm LVOT Diameter 1.8 cm LV Ejection Fraction 2D Teich 55.7 % LV Ejection Fraction MOD 2C 51.6 % LV Ejection Fraction 2C AL 51.7 % LA Diameter 2.6 cm LA Sys Volume AL 36.2 cm cubed LA Sys Volume Index AL 20.1 cm cubed/m squared Aorta at Sinotubular Diameter 2.9 cm IVC Diameter 0.9 cm M-MODE LA Ao Ratio MM 1.0 AV Cusp Separation MM 1.0 cm DOPPLER AV Peak Velocity 198.0 cm/s LVOT Peak Velocity 120.0 cm/s AV Area Cont Eq vti 2.2 cm squared AV Area Cont Eq pk 1.6 cm squared MV Peak Velocity 120.3 cm/s MV Area PHT 2.3 cm squared Mitral E to A Ratio 0.5 TR Peak Velocity 258.0 cm/s TR Peak Gradient 26.6 mmHg TV Peak E Velocity 45.0 cm/s Right Atrial Pressure 3.0 mmHg Pulmonary Artery Systolic Pressu 29.6 mmHg PV Peak Velocity 104.0 cm/s FINDINGS Left Ventricle Left ventricle is normal in size. LV systolic function is normal with EF of 60-65%. No regional wall motion abnormalities are seen. Grade 1 diastolic dysfunction Right Ventricle Normal in size and function Right Atrium Normal in size Left Atrium Normal in size Mitral Valve Structurally normal mitral valve. Aortic Valve Structurally normal aortic valve. No significant stenosis or regurgitation. Tricuspid Valve Mild tricuspid regurgitation. Pulmonary artery systolic pressure is normal. Pulmonic Valve Not well visualized Pericardium Grossly normal. Aorta Normal in size IVC Appears to be normal CONCLUSIONS LV systolic function is normal with EF of 60-65% Grade 1 diastolic dysfunction Mild tricuspid regurgitation. No comparison studies are available. Magan Guzman MD (Electronically Signed) Final Date: 12 March 2024 09:00 S
[2024-03-11 18:31] LABS: Troponin 5 6HR 48.59 ng/L (0-10)
[2024-03-11 18:38] LABS: Troponin 5 6HR Delta -11.41 ng/L (0-12)
[2024-03-11] MEDS: sodium chloride 0.9% 1,000 ML 50 ML IV (18:43)
[2024-03-11 19:27] LABS: C.Diff PCR (Lab) NEGATIVE (Negative)
[2024-03-11 19:45] LABS: Creatine Phosphokinase 79 U/L (26-192); NT Pro B Type Natriuretic Pept 324 pg/mL (0-450)
[2024-03-11] MEDS: metoprolol tartrate 50 mg Tablet 25 MG PO (20:22)
[2024-03-11 20:40] LABS: Adenovirus Not Detected (NOT DETECT); Chlamydia Pneumoniae Not Detected (NOT DETECT); Coronavirus 229E,HKU1,NL63,OC4 Not Detected (NOT DETECT); Human Metapneumovirus Not Detected (NOT DETECT); Human Rhinovirus/Enterovirus Not Detected (NOT DETECT); Influenza A Not Detected (NOT DETECT); Influenza A H1 Not Detected (NOT DETECT); Influenza A H1-2009 Not Detected (NOT DETECT); Influenza A H3 Not Detected (NOT DETECT); Influenza B Not Detected (NOT DETECT); Mycoplasma Pneumoniae Not Detected (NOT DETECT); Parainfluenza Virus Type 1 Not Detected (NOT DETECT); Parainfluenza Virus Type 2 Not Detected (NOT DETECT); Parainfluenza Virus Type 3 Not Detected (NOT DETECT); Parainfluenza Virus Type 4 Not Detected (NOT DETECT); Respiratory Syncytial Virus A Not Detected (NOT DETECT); Respiratory Syncytial Virus B Not Detected (NOT DETECT); SARS-COV-2 Not Detected (NOT DETECT)
[2024-03-11] MEDS: albuterol 2.5 mg/3 mL Neb INHALATION (21:15)
[2024-03-12] VITALS (8 sets, daily range): BP systolic 98–121; BP diastolic 55–75; PULSE 62–70; RESP 16–19; TEMP 36.5–36.8; O2SAT 94–97
[2024-03-12 04:29] LABS: Basophils % 0.5 %; Eosinophils % 0.5 %; Hematocrit 34.5 % (36-47); Lymphocytes # 2.1 10^3/uL (0.8-4.8); Mean Corpuscular HGB Conc 33.6 g/dL (30-55); Mean Corpuscular Hemoglobin 30.7 pg (27-33); Mean Corpuscular Volume 91.3 fl (85-98); Mean Platelet Volume 10.7 fL (7.4-10.4); Monocytes # 0.3 10^3/uL (0.2-0.9); Monocytes % 8.4 %; Neutrophils % 34.3 %; Nucleated Red Blood Cells % 0 %; Platelet Count 81 10^3/cmm (157-399); Red Blood Count 3.78 10^6/uL (3.85-5.65); Red Cell Distribution Width 16.3 % (12.1-15.1)
[2024-03-12 04:41] LABS: INR 1.05 (0.8-1.2)
[2024-03-12 04:42] LABS: Partial Thromboplastin Time 33.8 SECONDS (23.9-36.7)
[2024-03-12 04:47] LABS: Alanine Aminotransferase 116 U/L (0-33); Albumin Level 2.3 g/dL (3.5-5.2); Alkaline Phosphatase 51 U/L (35-105); Anion Gap 14.3 (5-19); Aspartate Amino Transferase 158 U/L (0-32); Blood Urea Nitrogen 19 mg/dL (8-23); Calcium 7.1 mg/dL (8.5-10.5); Carbon Dioxide 21 mmol/L (22-29); Chloride 104 mmol/L (98-107); Creatinine Clr Calc Pharmacy 44.4191; Globulin 2.4 g/dL (1.3-4.6); Glucose 83 mg/dL (65-115); Osmolality Calculated 283 mOsm/kg (285-295); Potassium 3.3 mmol/L (3.5-5.1); Sodium 136 mmol/L (136-145); Total Bilirubin 0.6 mg/dL (0.15-1.2); Total Protein 4.7 g/dL (6.6-8.7)
[2024-03-12 05:18] LABS: Slide Review Slide Review Perform
[2024-03-12 05:38] LABS: Lipase 135 U/L (13-60)
[2024-03-12 05:49] LABS: Erythrocyte Sedimentation Rate 4 mm/hr (0-15)
[2024-03-12] MEDS: metoprolol tartrate 50 mg Tablet 25 MG PO ×2 (08:38→20:17)
[2024-03-12] MEDS: doxycycline 100 mg Tablet PO ×2 (08:41→16:35)
[2024-03-12] MEDS: pantoprazole DR 40 mg Tablet PO (08:41)
[2024-03-12] MEDS: cetirizine 10 mg Tablet PO (08:41)
[2024-03-12] MEDS: folic acid 1 mg Tablet PO (08:41)
[2024-03-12] MEDS: levothyroxine 50 mcg Tablet PO (08:41)
[2024-03-12] MEDS: predniSONE 5 mg Tablet PO (08:42)
--- NOTE | 2024-03-12 08:42 | US_ITS ---
WS: [id number] ULTRASOUND RENAL TECHNIQUE: Ultrasound examination of both kidneys. CLINICAL INFORMATION: hydronephrosis b/l COMPARISON: CT 03/11/2024 FINDINGS: RIGHT: Right kidney is normal in size and appearance. Echogenicity: Normal. Cortical thickness: 0.8 cm; Normal. Hydronephrosis: None. Perinephric fluid: None. Right kidney measures: 8.3 cm x 4.1 cm x 3.9 cm. LEFT: Left kidney is normal in size and appearance. Echogenicity: Normal. Cortical thickness: 1.6 cm; Normal. Hydronephrosis: None. Perinephric fluid: None. Left kidney measures: 9.1 cm x 4.1 cm x 4.1 cm. Normal visualized aorta. Prevoid bladder volume 493 cc. Patient unable to void for post void imaging US/US renal BI with PV bladder IMPRESSION: 1. No hydronephrosis in either kidney. 2. Prevoid bladder volume 493 cc. Patient unable to void for post void imaging
[2024-03-12 13:34] LABS: Lyme AB Screen <0.90 index
[2024-03-12] MEDS: sodium chloride 0.9% 1,000 ML 50 ML IV (14:26)
--- NOTE | 2024-03-12 14:49 | P.PN_ITS ---
Subjective 2 Subjective: No acute overnight events noted. She still complains of severe weakness but denies any pain or any other significant changes. Vitals/I&O/Wt Last Vital Signs Temp 98.2 F 03/12/24 11:46 Pulse 70 03/12/24 11:46 Resp 17 03/12/24 11:46 BP 100/55 03/12/24 11:46 Pulse Ox 96 03/12/24 11:46 O2 Del Method Nasal Cannula 03/12/24 11:46 O2 Flow Rate 2 03/12/24 08:06 03/11/24 03/12/24 03/12/24 22:59 06:59 14:59 Intake Total 1725.833 / 1725.833 Balance 1725.833 / 1725.833 Weight last 48 hrs Weight 76.566 kg Weight 72.575 kg Weight 72.575 kg Physical Exam 2 Narrative: She is alert awake oriented x 3 Chest clear to auscultation bilaterally Cardiovascular normal heart sounds no murmurs Abdomen soft nontender nondistended normal bowel sounds Extremities no edema noted bilateral lower extremities, Left lower extremity with extensive bruising more laterally from ankle to knee and then again on the medial side of the foot in line with the first metatarsal region. Leg is not significantly tender to palpation. Neurological no neurological deficits noted Data 03/12/24 04:10 03/12/24 04:10 Micro: Microbiology 03/11/24 11:58 Urine Culture - Preliminary Urine,Clean Catch Gram Negative Rods 03/11/24 11:00 Blood Culture - Preliminary Blood NEGATIVE TO DATE 03/11/24 11:00 Blood Culture - Preliminary Blood NEGATIVE TO DATE 03/11/24 18:30 Stool Lactoferrin - Final Stool Occult Blood (FIT) - Final A&P Assessment and plan (1) Generalized weakness: Primary presenting symptoms today that has been progressively worsening over the last 3 to 4 weeks. Based on available information it seems to be more proximal muscle weakness involving upper and lower extremities. She is chronically on prednisone therapy so myopathy is a consideration. The fact that she has not been focusing on caring for herself indifference to caring for her who is on hospice also very likely contributor. Also could be a combination of infection of unknown etiology, hypokalemia and acute renal failure. OT/PT eval and treat (2) Elevated transaminase level: Likely secondary to acute viral illness versus tickborne illness Follow-up serologies LFTs improving, will continue to trend. (3) Diarrhea: Lipase trending down from 163-135. Could be secondary to malabsorption, etiology unknown (4) Acute kidney injury: Likely secondary to dehydration, improved with IV fluids. Creatinine back to baseline of 1.0 today (5) Thrombocytopenia: Etiology unknown, but could be due to long-term use of methotrexate, prednisone, Protonix or acute viral illness worsening, trending down from 10 7-81. No active bleeding at this time Discontinue Protonix, will start on p.o. Pepcid 40 mg at bedtime (6) Elevated lipase: Trending down today. Could be secondary to acute renal failure. Will continue to monitor (7) Elevated troponin: (8) Persistent cough for 3 weeks or longer: Likely allergic Will continue with p.o. cetirizine 10 mg daily (9) Abnormal urinalysis: Present on admission with positive leukocyte esterase and 40-55 white blood cells though also with some epithelial cells. She denies any urinary symptoms She is status post 1 dose of Levaquin in the emergency room. Follow-up urine culture (10) Seropositive rheumatoid arthritis of multiple joints: Currently doing well without any acute flareup of her joints by history. Is managed with prednisone and Enbrel. She had previously been on methotrexate but stopped it in November of this year secondary to elevation in liver enzymes. Follows with Dr. Carmen in rheumatology. Not known to have any pulmonary or cardiac involvement with her rheumatoid arthritis from review of clinic records. (11) High risk medication use: Chronically on steroids, 5 mg of prednisone daily. She is on Enbrel with last dose this past Sunday, 2 days ago (2 days prior to admission). (12) Essential hypertension: Continue home medications metoprolol 25 mg twice daily (13) Adult onset hypothyroidism: Continue levothyroxine 50 mcg daily (14) Tachycardia: Resolved on admission Continue p.o. metoprolol for now 2D ECHO- LV systolic function is normal with EF of 60-65% Grade 1 diastolic dysfunction Mild tricuspid regurgitation. No comparison studies are available. (15) Seasonal and perennial allergic rhinitis: Plan Diet-Regular diet VTE prophylaxis: SCDs GI Prophylaxis: pepcid Antibiotics: s/p Levaquin x 1 dose 03/11; doxycycline started 03/11 for possible tick infection Pending studies: CK level, tick panel, , stool studies Code Status: Full Code Attestations 2 Medical Necessity Statement*: She needs continued hospitalization crossing 2 midnights for management of acute generalized weakness, chronic diarrhea, elevated LFTs and thrombocytopenia Time Spent in Patient Care: 25 minutes Coding Level of Care Code Acute Code for Chg Fwd Diagnoses Generalized weakness R53.1 Elevated transaminase level R74.01 Diarrhea R19.7 Acute kidney injury N17.9 Thrombocytopenia D69.6 Elevated lipase R74.8 Elevated troponin R79.89 Persistent cough for 3 weeks or longer R05.3 Abnormal urinalysis R82.90 Seropositive rheumatoid arthritis of multiple joints M05.79 High risk medication use Z79.899 Essential hypertension I10 Adult onset hypothyroidism E03.8 Tachycardia R00.0 Seasonal and perennial allergic rhinitis J30.89; J30.2 Time Spent (min) 25
[2024-03-12] MEDS: potassium chloride ER 20 mEq Tablet 40 MEQ PO ×2 (16:33→20:17)
--- NOTE | 2024-03-12 18:26 | PC.NURSE ---
Pt bladder scanned d/t this RN concern for retention. Bladder scan shows 520ml in. Pt states she is unable to void. Dr. Chen notified. Order for barrios given.
[2024-03-12] MEDS: famotidine 20 mg Tablet 40 MG PO (20:18)
[2024-03-13] VITALS (8 sets, daily range): BP systolic 116–133; BP diastolic 70–80; PULSE 61–73; RESP 16–18; TEMP 36.4–37; O2SAT 95–98; BMI 31.1
[2024-03-13 06:15] LABS: Basophils % 0.2 %; Eosinophils % 0.5 %; Lymphocytes # 2.2 10^3/uL (0.8-4.8); Lymphocytes % 54.2 %; Mean Corpuscular HGB Conc 32.9 g/dL (30-55); Mean Corpuscular Volume 94.3 fl (85-98); Mean Platelet Volume 10.6 fL (7.4-10.4); Monocytes # 0.4 10^3/uL (0.2-0.9); Monocytes % 10.9 %; Neutrophils # 1.34 10^3/uL (1.8-7.7); Neutrophils % 33.5 %; Nucleated Red Blood Cells % 0 %; Platelet Count 94 10^3/cmm (157-399); Red Blood Count 3.71 10^6/uL (3.85-5.65); Red Cell Distribution Width 16.7 % (12.1-15.1); White Blood Count 4.02 10^3/uL (3.29-11.43)
[2024-03-13 06:39] LABS: Alanine Aminotransferase 103 U/L (0-33); Albumin Level 2.4 g/dL (3.5-5.2); Alkaline Phosphatase 57 U/L (35-105); Anion Gap 9.7 (5-19); Aspartate Amino Transferase 121 U/L (0-32); Blood Urea Nitrogen 12 mg/dL (8-23); Calcium 7.8 mg/dL (8.5-10.5); Carbon Dioxide 24 mmol/L (22-29); Chloride 110 mmol/L (98-107); Creatinine Clr Calc Pharmacy 55.7855; Globulin 2.6 g/dL (1.3-4.6); Glucose 115 mg/dL (65-115); Lipase 143 U/L (13-60); Osmolality Calculated 289 mOsm/kg (285-295); Potassium 4.7 mmol/L (3.5-5.1); Sodium 139 mmol/L (136-145); Total Bilirubin 0.6 mg/dL (0.15-1.2)
[2024-03-13 07:06] LABS: Slide Review Slide Review Perform
[2024-03-13] MEDS: predniSONE 5 mg Tablet PO (07:44)
[2024-03-13] MEDS: cetirizine 10 mg Tablet PO (07:44)
[2024-03-13] MEDS: folic acid 1 mg Tablet PO (07:44)
[2024-03-13] MEDS: metoprolol tartrate 50 mg Tablet 25 MG PO ×2 (07:44→20:15)
[2024-03-13] MEDS: levothyroxine 50 mcg Tablet PO (07:44)
[2024-03-13] MEDS: fluticasone nasal spray 16gm Btl 1 SPRAY NASAL (07:45)
[2024-03-13] MEDS: doxycycline 100 mg Tablet PO ×2 (07:45→16:45)
[2024-03-13] MEDS: sodium chloride 0.9% 1,000 ML 50 ML IV (09:33)
--- NOTE | 2024-03-13 14:16 | P.PN_ITS ---
Subjective 2 Subjective: Patient was seen this morning, does report fatigue, malaise denies any shortness of breath Vitals/I&O/Wt Last Vital Signs Temp 97.8 F 03/13/24 11:35 Pulse 65 03/13/24 11:51 Resp 18 03/13/24 11:51 BP 116/73 03/13/24 11:35 Pulse Ox 97 03/13/24 11:51 O2 Del Method Nasal Cannula 03/13/24 11:51 O2 Flow Rate 1 03/13/24 11:51 03/12/24 03/13/24 03/13/24 22:59 06:59 14:59 Intake Total 120 / 1845.833 120 / 2728.840 0848.833 / 1195.833 Output Total 1000 / 1000 400 / 1400 Balance -880 / 845.833 -280 / 702.035 1184.833 / 1195.833 Weight last 48 hrs Weight 77.281 kg Weight 77.281 kg Weight 76.566 kg Weight 72.575 kg Physical Exam 2 Urinary Catheter Management: Meyers: Cath Placed During This Visit: yes Reason for Continuing Indwelling Catheter: Acute Urinary Retention or Obstruction Urinary Catheter Date of Insertion: 03/12/24 Urinary Catheter Time of Insertion: 18:41 Data 03/13/24 05:54 03/13/24 05:54 Micro: Microbiology 03/11/24 11:58 Urine Culture - Final Urine,Clean Catch Gram Negative Rods 03/11/24 11:00 Blood Culture - Preliminary Blood NEGATIVE TO DATE 03/11/24 11:00 Blood Culture - Preliminary Blood NEGATIVE TO DATE A&P Assessment and plan (1) Generalized weakness: Primary presenting symptoms today that has been progressively worsening over the last 3 to 4 weeks. Based on available information it seems to be more proximal muscle weakness involving upper and lower extremities. She is chronically on prednisone therapy so myopathy is a consideration. The fact that she has not been focusing on caring for herself indifference to caring for her who is on hospice also very likely contributor. Could be secondary to tick borne illness . Also could be a combination of infection of unknown etiology, hypokalemia and acute renal failure. OT/PT eval and treat (2) Elevated transaminase level: Likely secondary to acute viral illness versus tickborne illness Follow-up serologies LFTs improving, will continue to trend. (3) Diarrhea: Lipase trending down from 163-135. Could be secondary to malabsorption, etiology unknown (4) Acute kidney injury: Likely secondary to dehydration, improved with IV fluids. Creatinine back to baseline of 1.0 today (5) Thrombocytopenia: likely related to tick borne illness, but could be due to long-term use of methotrexate, prednisone, Protonix or acute viral illness worsening, trending down from 10 7-81. No active bleeding at this time Discontinue Protonix, will start on p.o. Pepcid 40 mg at bedtime (6) Elevated lipase: Trending down today. Could be secondary to acute renal failure. Will continue to monitor (7) Elevated troponin: (8) Persistent cough for 3 weeks or longer: Likely allergic Will continue with p.o. cetirizine 10 mg daily (9) Abnormal urinalysis: monitor (10) Seropositive rheumatoid arthritis of multiple joints: Currently doing well without any acute flareup of her joints by history. Is managed with prednisone and Enbrel. She had previously been on methotrexate but stopped it in November of this year secondary to elevation in liver enzymes. Follows with Dr. Carmen in rheumatology. Not known to have any pulmonary or cardiac involvement with her rheumatoid arthritis from review of clinic records. (11) High risk medication use: Chronically on steroids, 5 mg of prednisone daily. She is on Enbrel with last dose this past Sunday, 2 days ago (2 days prior to admission). (12) Essential hypertension: Continue home medications metoprolol 25 mg twice daily (13) Adult onset hypothyroidism: Continue levothyroxine 50 mcg daily (14) Tachycardia: Resolved on admission Continue p.o. metoprolol for now 2D ECHO- LV systolic function is normal with EF of 60-65% Grade 1 diastolic dysfunction Mild tricuspid regurgitation. No comparison studies are available. (15) Seasonal and perennial allergic rhinitis: (16) Tick-borne disease: -continue doxycycline Plan Diet-Regular diet VTE prophylaxis: SCDs, lovenox on hold due to thromboctypenia GI Prophylaxis: pepcid Antibiotics: s/p Levaquin x 1 dose 03/11; doxycycline started 03/11 for possible tick infection Pending studies: tick panel, , stool studies Code Status: Full Code Attestations 2 Medical Necessity Statement*: Patient requires hospitalization for tickborne illness, weakness, fatigue Diagnoses Generalized weakness R53.1 Elevated transaminase level R74.01 Diarrhea R19.7 Acute kidney injury N17.9 Thrombocytopenia D69.6 Elevated lipase R74.8 Elevated troponin R79.89 Persistent cough for 3 weeks or longer R05.3 Abnormal urinalysis R82.90 Seropositive rheumatoid arthritis of multiple joints M05.79 High risk medication use Z79.899 Essential hypertension I10 Adult onset hypothyroidism E03.8 Tachycardia R00.0 Seasonal and perennial allergic rhinitis J30.89; J30.2 Tick-borne disease B88.2
--- NOTE | 2024-03-13 14:17 | USCV_ITS ---
Abraham Santa Age: 78 Gender: F : 1945 Exam Date: 03/13/2024 16:07 Ordering Phys: Logan Negron MD Technologist: Exam Location: [facility] [place] Indication: bed stasis brusing PROCEDURES: The venous duplex Doppler examination of both lower extremities was performed in the standard fashion. The following venous structures were evaluated: common femoral vein, profunda vein, proximal portion of the greater saphenous vein, superficial femoral vein, and the popliteal vein. In addition, the posterior tibial and peroneal trunk were evaluated. FINDINGS: Normal 2-D Doppler and augmentation and compressibility throughout the lower extremity venous structures. Additional imaging through the proximal calf veins also reveals no thrombus. Limited evaluation of the greater saphenous vein is patent with no thrombus. CONCLUSIONS No evidence of right lower extremity DVT. No evidence of left lower extremity DVT. Mahamed Avina MD (Electronically Signed) Final Date: 14 March 2024 08:57 S
[2024-03-13] MEDS: famotidine 20 mg Tablet 40 MG PO (20:14)
[2024-03-14] VITALS (7 sets, daily range): BP systolic 129–177; BP diastolic 71–99; PULSE 69–81; RESP 16–20; TEMP 36.4–36.7; O2SAT 93–97
[2024-03-14] MEDS: sodium chloride 0.9% 1,000 ML 50 ML IV (04:07)
[2024-03-14 05:27] LABS: Basophils % 0.5 %; Eosinophils % 0.7 %; Hematocrit 34.9 % (36-47); Lymphocytes % 46.2 %; Mean Corpuscular HGB Conc 32.7 g/dL (30-55); Mean Corpuscular Volume 94.8 fl (85-98); Mean Platelet Volume 10.5 fL (7.4-10.4); Monocytes # 0.5 10^3/uL (0.2-0.9); Monocytes % 10.8 %; Neutrophils # 1.75 10^3/uL (1.8-7.7); Neutrophils % 41.1 %; Nucleated Red Blood Cells % 0 %; Platelet Count 125 10^3/cmm (157-399); Red Blood Count 3.68 10^6/uL (3.85-5.65); Red Cell Distribution Width 16.7 % (12.1-15.1); White Blood Count 4.26 10^3/uL (3.29-11.43)
[2024-03-14 05:45] LABS: Alanine Aminotransferase 133 U/L (0-33); Albumin Level 2.5 g/dL (3.5-5.2); Alkaline Phosphatase 71 U/L (35-105); Aspartate Amino Transferase 178 U/L (0-32); Blood Urea Nitrogen 10 mg/dL (8-23); Calcium 8.2 mg/dL (8.5-10.5); Carbon Dioxide 23 mmol/L (22-29); Chloride 109 mmol/L (98-107); Creatinine Clr Calc Pharmacy 55.6735; Globulin 2.7 g/dL (1.3-4.6); Glucose 119 mg/dL (65-115); Osmolality Calculated 292 mOsm/kg (285-295); Sodium 141 mmol/L (136-145); Total Bilirubin 0.7 mg/dL (0.15-1.2); Total Protein 5.2 g/dL (6.6-8.7)
[2024-03-14 06:11] LABS: Slide Review Slide Review Perform
[2024-03-14] MEDS: predniSONE 5 mg Tablet PO (08:38)
[2024-03-14] MEDS: fluticasone nasal spray 16gm Btl 1 SPRAY NASAL (08:38)
[2024-03-14] MEDS: cetirizine 10 mg Tablet PO (08:38)
[2024-03-14] MEDS: doxycycline 100 mg Tablet PO ×2 (08:38→18:08)
[2024-03-14] MEDS: folic acid 1 mg Tablet PO (08:38)
[2024-03-14] MEDS: levothyroxine 50 mcg Tablet PO (08:38)
[2024-03-14] MEDS: metoprolol tartrate 50 mg Tablet 25 MG PO ×2 (08:40→21:19)
--- NOTE | 2024-03-14 13:12 | PC.SOCIAL ---
IMM Updated Updated pt on IMM. No questions voiced. Provided pt a copy. Initialed, dated, & timed a copy & placed in chart.
[2024-03-14] MEDS: cefTRIAXone 1,000 MG in sodium chloride 0.9% (plus) 50 ML 100 MG IV (14:00)
--- NOTE | 2024-03-14 19:12 | P.PN_ITS ---
Subjective 2 Subjective: Patient was seen this morning, does report persistent weakness, fatigue, denies any fevers overnight, discussed her elevated LFTs will require monitoring Vitals/I&O/Wt Last Vital Signs Temp 97.7 F 03/14/24 15:43 Pulse 75 03/14/24 15:43 Resp 18 03/14/24 15:43 BP 164/87 03/14/24 15:43 Pulse Ox 97 03/14/24 15:43 O2 Del Method Room Air 03/14/24 15:43 O2 Flow Rate 1 03/13/24 11:51 03/14/24 03/14/24 03/14/24 06:59 14:59 22:59 Intake Total 1240 / 2855.833 960 / 960 530 / 1490 Output Total 850 / 2150 1800 / 1800 1400 / 3200 Balance 390 / 705.833 -840 / -840 -870 / -1710 Weight last 48 hrs Weight 76.975 kg Weight 76.975 kg Weight 77.281 kg Weight 77.281 kg Physical Exam 2 Const: COMMON NORMALS: no acute distress and patient oriented x3 Resp: COMMON NORMALS: normal respiratory effort, No retractions, No use of accessory muscles and clear to auscultation bilaterally AUSCULTATION: clear to auscultation bilaterally Cardio: COMMON NORMALS: regular rate, regular rhythm, S1 normal heart sound present and S2 normal heart sound present RATE: regular rate RHYTHM: r egular rhythm HEART SOUNDS: S1 normal heart sound present and S2 normal heart sound present GI: COMMON NORMALS: Normal to inspection, nondistended, normoactive bowel sounds present and non-tender Extremity: COMMON NORMALS: no pedal edema Neuro: COMMON NORMALS: patient oriented x3 Psych: COMMON NORMALS: mental status grossly normal Urinary Catheter Management: Meyers: Cath Placed During This Visit: yes Reason for Continuing Indwelling Catheter: Acute Urinary Retention or Obstruction Urinary Catheter Date of Insertion: 03/12/24 Urinary Catheter Time of Insertion: 18:41 Data 03/14/24 05:06 03/14/24 05:06 A&P Assessment and plan (1) Generalized weakness: Primary presenting symptoms today that has been progressively worsening over the last 3 to 4 weeks. Based on available information it seems to be more proximal muscle weakness involving upper and lower extremities. She is chronically on prednisone therapy so myopathy is a consideration. The fact that she has not been focusing on caring for herself indifference to caring for her who is on hospice also very likely contributor. Could be secondary to tick borne illness . Also could be a combination of infection of unknown etiology, hypokalemia and acute renal failure. OT/PT eval and treat (2) Elevated transaminase level: Likely secondary to acute viral illness versus tickborne illness Follow-up serologies LFTs improving, will continue to trend. (3) Diarrhea: Lipase trending down from 163-135. Could be secondary to malabsorption, etiology unknown (4) Acute kidney injury: Likely secondary to dehydration, improved with IV fluids. Creatinine back to baseline of 1.0 today (5) Thrombocytopenia: likely related to tick borne illness, but could be due to long-term use of methotrexate, prednisone, Protonix or acute viral illness worsening, trending down from 10 7-81. No active bleeding at this time Discontinue Protonix, will start on p.o. Pepcid 40 mg at bedtime (6) Elevated lipase: Trending down today. Could be secondary to acute renal failure. Will continue to monitor (7) Elevated troponin: (8) Persistent cough for 3 weeks or longer: Likely allergic Will continue with p.o. cetirizine 10 mg daily (9) Abnormal urinalysis: monitor (10) Seropositive rheumatoid arthritis of multiple joints: Currently doing well without any acute flareup of her joints by history. Is managed with prednisone and Enbrel. She had previously been on methotrexate but stopped it in November of this year secondary to elevation in liver enzymes. Follows with Dr. Carmen in rheumatology. Not known to have any pulmonary or cardiac involvement with her rheumatoid arthritis from review of clinic records. (11) High risk medication use: Chronically on steroids, 5 mg of prednisone daily. She is on Enbrel with last dose this past Sunday, 2 days ago (2 days prior to admission). (12) Essential hypertension: Continue home medications metoprolol 25 mg twice daily (13) Adult onset hypothyroidism: Continue levothyroxine 50 mcg daily (14) Tachycardia: Resolved on admission Continue p.o. metoprolol for now 2D ECHO- LV systolic function is normal with EF of 60-65% Grade 1 diastolic dysfunction Mild tricuspid regurgitation. No comparison studies are available. (15) Seasonal and perennial allergic rhinitis: (16) Tick-borne disease: -continue doxycycline Plan Diet-Regular diet VTE prophylaxis: SCDs, lovenox on hold due to thromboctypenia GI Prophylaxis: pepcid Antibiotics: s/p Levaquin x 1 dose 03/11; doxycycline started 03/11 for possible tick infection Pending studies: tick panel, , stool studies Code Status: Full Code Plan for today, continue antibiotics, Attestations 2 Medical Necessity Statement*: Patient requires hospitalization for tickborne illness, UTI, transaminitis Diagnoses Generalized weakness R53.1 Elevated transaminase level R74.01 Diarrhea R19.7 Acute kidney injury N17.9 Thrombocytopenia D69.6 Elevated lipase R74.8 Elevated troponin R79.89 Persistent cough for 3 weeks or longer R05.3 Abnormal urinalysis R82.90 Seropositive rheumatoid arthritis of multiple joints M05.79 High risk medication use Z79.899 Essential hypertension I10 Adult onset hypothyroidism E03.8 Tachycardia R00.0 Seasonal and perennial allergic rhinitis J30.89; J30.2 Tick-borne disease B88.2
[2024-03-14] MEDS: famotidine 20 mg Tablet 40 MG PO (21:19)
[2024-03-15] VITALS: BP 172/97; PULSE 69; RESP 18; TEMP 36.6; O2SAT 95
[2024-03-15] MEDS: sodium chloride 0.9% 1,000 ML 50 ML IV (00:25)
[2024-03-15 04:00] VITALS: BP 155/89; PULSE 72; RESP 18; TEMP 36.3; O2SAT 97
[2024-03-15 05:29] LABS: Basophils % 0.4 %; Eosinophils % 0.4 %; Lymphocytes # 1.9 10^3/uL (0.8-4.8); Lymphocytes % 37.8 %; Mean Corpuscular HGB Conc 33.8 g/dL (30-55); Mean Corpuscular Hemoglobin 31.6 pg (27-33); Mean Corpuscular Volume 93.7 fl (85-98); Mean Platelet Volume 10.1 fL (7.4-10.4); Monocytes # 0.7 10^3/uL (0.2-0.9); Monocytes % 13.7 %; Neutrophils # 2.27 10^3/uL (1.8-7.7); Neutrophils % 45.1 %; Nucleated Red Blood Cells % 0 %; Platelet Count 142 10^3/cmm (157-399); Red Blood Count 3.95 10^6/uL (3.85-5.65); Red Cell Distribution Width 16.1 % (12.1-15.1); White Blood Count 5.03 10^3/uL (3.29-11.43)
[2024-03-15 05:51] LABS: Alanine Aminotransferase 154 U/L (0-33); Albumin Level 2.7 g/dL (3.5-5.2); Alkaline Phosphatase 77 U/L (35-105); Anion Gap 12.4 (5-19); Aspartate Amino Transferase 153 U/L (0-32); Blood Urea Nitrogen 9 mg/dL (8-23); Calcium 8.5 mg/dL (8.5-10.5); Carbon Dioxide 22 mmol/L (22-29); Chloride 108 mmol/L (98-107); Creatinine Clr Calc Pharmacy 55.0759; Globulin 3.1 g/dL (1.3-4.6); Glucose 111 mg/dL (65-115); Osmolality Calculated 287 mOsm/kg (285-295); Potassium 3.4 mmol/L (3.5-5.1); Sodium 139 mmol/L (136-145); Total Bilirubin 0.8 mg/dL (0.15-1.2); Total Protein 5.8 g/dL (6.6-8.7)
--- NOTE | 2024-03-15 08:10 | PC.PT ---
Physical therapy K+ values are below normal limits. Advised to wait until values are WNL.
[2024-03-15 08:28] VITALS: BP 127/82; PULSE 84; RESP 18; TEMP 36.3; O2SAT 94
[2024-03-15] MEDS: predniSONE 5 mg Tablet PO (09:25)
[2024-03-15] MEDS: albuterol 2.5 mg/3 mL Neb INHALATION (09:25)
[2024-03-15] MEDS: cetirizine 10 mg Tablet PO (09:25)
[2024-03-15] MEDS: doxycycline 100 mg Tablet PO (09:25)
[2024-03-15] MEDS: metoprolol tartrate 50 mg Tablet 25 MG PO (09:25)
[2024-03-15] MEDS: levothyroxine 50 mcg Tablet PO (09:26)
[2024-03-15] MEDS: folic acid 1 mg Tablet PO (09:26)
[2024-03-15 09:30] VITALS: PULSE 78; RESP 18; O2SAT 97
--- NOTE | 2024-03-15 10:03 | P.DS_ITS ---
Discharge Providers Date of Admission: 03/11/24 14:27 Date of Discharge: March 15, 2024 Attending Provider at Admission: Mindy Mckeon MD Attending Provider at Discharge: Logan Negron MD Primary Care Provider: JONNA Carranza Diagnoses at Discharge Discharge Diagnosis (1) Generalized weakness: Status: Acute (2) Elevated transaminase level: Status: Acute (3) Diarrhea: Status: Acute (4) Acute kidney injury: Status: Acute (5) Thrombocytopenia: Status: Acute (6) Elevated lipase: Status: Acute (7) Elevated troponin: Status: Acute (8) Persistent cough for 3 weeks or longer: Status: Acute (9) Abnormal urinalysis: Status: Acute (10) Seropositive rheumatoid arthritis of multiple joints: Status: Chronic Permanent problem details: Diagnosed 2003, on steroids and DMARD therapy (11) High risk medication use: Status: Chronic Permanent problem details: Enbrel and prednisone 03/2024 (12) Essential hypertension: Status: Chronic (13) Adult onset hypothyroidism: Status: Chronic (14) Tachycardia: Status: Chronic Permanent problem details: sinus tachycardia, on metoprolol (15) Seasonal and perennial allergic rhinitis: Status: Chronic (16) Tick-borne disease: Status: Acute Reason for Visit Reason for Visit: Weakness Hospital Course Hospital Course Abraham Santa is a 78 year old female who presents to the emergency room with chief complaint of weakness. She was on the toilet this morning and was so weak she was not able to get herself up. She has been having progressively worsening generalized weakness for maybe 3 weeks. She had started using her 's walker to help her some. She has had weakness involving both her arms and her legs. One side is not weaker than the other. She has noticed particularly that she has difficulty getting herself up from seats. Even using her arms for support she does cannot seem to get up. She has had a few falls. One of them occurred when she was taking her dog to the vet and another a day or so later. She had a very large bruise to her left lower extremity associated with the falls. She required EMS assistance to get her up after at least one of them. She denies any acute injury beyond the bruising. No reported fevers. She has not had any headache or vision changes. She has a known history of rheumatoid arthritis for which she is chronically on Enbrel and prednisone. She takes 5 mg of prednisone daily. Does not recall the last time she took prednisone burst for an acute RA flare. She had been on methotrexate but this was stopped in November of this year due to elevation in liver enzymes. She has had a nonproductive cough for several weeks. Associated with this is some postnasal drainage. She carries a diagnosis of seasonal allergies. No sore throat or sores in her mouth. She has not had any difficulty breathing despite the cough. She has no history of pulmonary disease or known coronary artery disease. No reports of any chest pain. No hemoptysis. She denies abdominal pain. She has had diarrhea for around 3 weeks now. Stools are loose and watery and occur pretty much every time she goes to the bathroom somewhere between 5 and 10 times a day. No blood has been noted in her stools. She does not report any dysuria, urinary frequency or hematuria. Her rheumatoid arthritis is generally doing well without any acute flareup of her joints. She has noticed some facial swelling. No new sores. 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 She sleeps when he sleeps which is usually during the day and admits that she has not been resting well for some time. She does have somebody that comes out to the house from [employer] who helps her (Hellen at [phone]). Patient's daughter Roseline Santa lives out of state though some family is coming to assist. Roseline can be reached at [phone]. Normally Mrs. Santa can ambulate okay and attend to her ADLs without difficulty. She does not recall any episodes of acute vision changes or speech difficulties. No known history of stroke, coronary artery disease or kidney disease. She has been taking her medications as prescribed with no medication changes lately other than discontinuation of methotrexate in November due to elevation in liver enzymes. Workup in the emergency room today revealed evidence of an abnormal urinalysis there was some epithelial cells, soft blood pressures, elevated lactic acid level at 2.9, low platelets, elevation in BUN and creatinine from prior values and some mild hyponatremia in addition to elevation in lipase and transaminases. Baseline troponin was noted to be elevated at 60 though 2-hour delta demonstrated a downward trend. Patient was noted to have some oxygen saturations into the upper 80s and was transiently on oxygen therapy at 2 L by nasal cannula while in the emergency room. Patient denies any history of alcohol or drug use or smoking. She was treated empirically with Levaquin and some IV fluids and request was made for admission for further evaluation and treatment. On focused questioning, Mrs. Santa does admit to having removed a couple of ticks from her this year but not many. Has not had any other sick contacts to speak of beyond her . The weakness was her primary reason fo r coming in today Patient was admitted to [facility] for generalized weakness, generalized weakness, elevated transaminase level thrombocytopenia likely secondary to tickborne illness, with evidence of UTI. She was monitored as inpatient and received PT OT, doxycycline antibiotics for UTI, overall clinically improved, thrombocytopenia has improved, transaminitis has plateaued, she will be discharged [facility] with doxycycline, cefdinir, with close follow-up with primary care provider as outpatient, recheck liver function and platelet count in 1 week. For her rheumatoid arthritis, patient was advised to hold the methotrexate, Enbrel for at least 1 week, follow-up with rheumatology Physical Exam Const: COMMON NORMALS: no acute distress and patient oriented x3 Resp: COMMON NORMALS: normal respiratory effort, No retractions, No use of accessory muscles and clear to auscultation bilaterally AUSCULTATION: clear to auscultation bilaterally Cardio: COMMON NORMALS: regular rate, regular rhythm, S1 normal heart sound present and S2 normal heart sound present RATE: regular rate RHYTHM: regular rhythm HEART SOUNDS: S1 normal heart sound present and S2 normal heart sound present GI: COMMON NORMALS: Normal to inspection, nondistended, normoactive bowel sounds present and non-tender Extremity: COMMON NORMALS: no pedal edema Neuro: COMMON NORMALS: patient oriented x3 Psych: COMMON NORMALS: mental status grossly normal Urinary Catheter Management: Meyers: Cath Placed During This Visit: yes Reason for Continuing Indwelling Catheter: Acute Urinary Retention or Obstruction Urinary Catheter Date of Insertion: 03/12/24 Urinary Catheter Time of Insertion: 18:41 Discharge Data Studies Completed and Pending Completed Studies During Hospitalization Category Date Time Status CT abdomen pelvis wo con [id number] Stat Cat Scan 03/11/24 10:[address] head wo con* [id number] Stat Cat Scan 03/11/24 09:52 Completed XR chest 1V portable [id number] Stat Exams 03/11/24 09:51 [place] [id number] Routine Ultrasound 03/13/24 14:17 Completed CV. echo complete* [id number] Routine Ultrasound 03/11/24 17:44 Completed US renal BI with PV bladder Stat Ultrasound 03/12/24 08:42 Completed Pending at discharge Category Date Time Status Blood Culture Stat Lab 03/11/24 11:00 Results Complete Blood Count w/Auto AM LABS Lab 03/16/24 04:00 Ordered Comprehensive Metabolic Panel AM LABS Lab 03/16/24 04:00 Ordered OVA and Parasites, Conc and PE Routine Lab 03/11/24 18:30 Received Salmonella / Shigella / Campy Routine Lab 03/11/24 18:30 Received Tick Panel Stat Lab 03/11/24 11:00 Results Radiology Impressions Chest X-Ray 03/11/24 09:51 IMPRESSION: No acute findings. Head CT 03/11/24 09:52 IMPRESSION: 1. No evidence of intracranial hemorrhage or mass effect. 2. Moderate small vessel changes with moderate parenchymal volume loss. 3. Intracranial vascular calcification. 4. No acute intracranial findings. Abdomen/Pelvis CT 03/11/24 10:30 IMPRESSION: 1. Sigmoid diverticulosis. No evidence of acute diverticulitis. 2. Subsegmental atelectasis RIGHT lower lobe. 3. Hepatomegaly with diffuse fatty infiltration of liver. 4. Hydronephrosis in either kidney. 5. Tortuous infrarenal abdominal aorta. 6. No other acute findings. Renal Ultrasound 03/12/24 08:42 IMPRESSION: 1. No hydronephrosis in either kidney. 2. Prevoid bladder volume 493 cc. Patient unable to void for post void imaging Laboratory Results WBC 5.03 10^3/uL (3.29-11.43) 03/15/24 05:21 RBC 3.95 10^6/uL (3.85-5.65) 03/15/24 05:21 Hgb 12.50 g/dL (11.27-16.99) 03/15/24 05:21 Hct 37.0 % (36-47) 03/15/24 05:21 MCV 93.7 fl (85-98) 03/15/24 05:21 MCH 31.6 pg (27-33) 03/15/24 05:21 MCHC 33.8 g/dL (30-55) 03/15/24 05:21 RDW 16.1 % (12.1-15.1) H 03/15/24 05:21 Plt Count 142 10^3/cmm (157-399) L 03/15/24 05:21 MPV 10.1 fL (7.4-10.4) 03/15/24 05:21 Neut % (Auto) 45.1 % 03/15/24 05:21 Lymph % (Auto) 37.8 % 03/15/24 05:21 [place] % (Auto) 13.7 % 03/15/24 05:21 Eos % (Auto) 0.4 % 03/15/24 05:21 Baso % (Auto) 0.4 % 03/15/24 05:21 Neut # (Auto) 2.27 10^3/uL (1.8-7.7) 03/15/24 05:21 Lymph # (Auto) 1.9 10^3/uL (0.8-4.8) 03/15/24 05:21 [place] # (Auto) 0.7 10^3/uL (0.2-0.9) 03/15/24 05:21 Eos # (Auto) 0.0 10^3/uL (0.0-0.8) 03/15/24 05:21 Baso # (Auto) 0.0 10^3/uL (0.0-0.1) 03/15/24 05:21 Nucleated RBC % (auto) 0 % 03/15/24 05:21 Total Counted 100 (0-100) 03/11/24 11:00 Atypical Lymphs % 7.0 % (0-5) H 03/11/24 11:00 Absolute Neutrophils 2.5 10^3/cmm (1.4-6.5) 03/11/24 11:00 Segmented Neutrophils 51 % 03/11/24 11:00 Abs Segm Neuts (Man) 2.1 10/cmm (1.6-7.1) 03/11/24 11:00 Band Neutrophils 8.0 % 03/11/24 11:00 Abs Band Neuts (Man) 0.3 10^3/cmm (0.0-1.2) 03/11/24 11:00 Absolute Lymphocytes 1.3 10^3/cmm (1.2-3.4) 03/11/24 11:00 Lymphocytes (Manual) 23 % 03/11/24 11:00 Monocytes (Manual) 10.0 % 03/11/24 11:00 Absolute Monocytes 0.4 10^3/cmm (0.1-0.6) 03/11/24 11:00 Eosinophils (Manual) 0 % 03/11/24 11:00 Absolute Eosinophils 0.0 10^3/cmm (0.0-0.7) 03/11/24 11:00 Basophils (Manual) 0.0 % 03/11/24 11:00 Absolute Basophils 0.0 10^3/cmm (0.0-0.2) 03/11/24 11:00 Metamyelocytes 1.0 % 03/11/24 11:00 Nucleated RBCs # 0.0 /100WBC 03/15/24 05:21 Platelet Estimate Decreased (Normal) L 03/11/24 11:00 Anisocytosis Trace 03/11/24 11:00 ESR 4 mm/hr (0-15) 03/12/24 05:13 PT 14.00 SECONDS (12.1-14.9) 03/12/24 04:10 INR 1.05 (0.8-1.2) 03/12/24 04:10 APTT 33.8 SECONDS (23.9-36.7) 03/12/24 04:10 Sodium 139 mmol/L (136-145) 03/15/24 05:21 Potassium 3.4 mmol/L (3.5-5.1) L 03/15/24 05:21 Chloride 108 mmol/L (98-107) H 03/15/24 05:21 Carbon Dioxide 22 mmol/L (22-29) 03/15/24 05:21 Anion Gap 12.4 (5-19) 03/15/24 05:21 BUN 9 mg/dL (8-23) 03/15/24 05:21 Creatinine 0.6 mg/dL (0.5-0.9) 03/15/24 05:21 GFR Calculation Not Reportable 03/15/24 05:21 Glucose 111 mg/dL (65-115) 03/15/24 05:21 Calculated Osmolality 287 mOsm/kg (285-295) 03/15/24 05:21 Lactic Acid 2.9 mmol/L (0.5-2.2) H 03/11/24 11:00 Lactic Acid (Sepsis) 1.5 mmol/L (0.5-2.2) 03/11/24 13:50 Calcium 8.5 mg/dL (8.5-10.5) 03/15/24 05:21 Magnesium 2.2 mg/dL (1.7-2.3) 03/11/24 11:00 Total Bilirubin 0.8 mg/dL (0.15-1.2) 03/15/24 05:21 AST 153 U/L (0-32) H 03/15/24 05:21 ALT 154 U/L (0-33) H 03/15/24 05:21 Alkaline Phosphatase 77 U/L (35-105) 03/15/24 05:21 Creatine Kinase 79 U/L (26-192) 03/11/24 17:10 Troponin T Baseline 60 ng/L (0-10) H 03/11/24 11:00 Troponin T 120 Minute 47.56 ng/L (0-10) H 03/11/24 13:50 Delta Troponin T -12.44 ABS# (0-10) L 03/11/24 13:50 Troponin T Hi Sens 6Hr 48.59 ng/L (0-10) H 03/11/24 17:10 Troponin T Hi Sens 6Hr Delta -11.41 ng/L (0-12) L 03/11/24 17:10 C-Reactive Protein 3.0 mg/L (0.0-4.9) 03/12/24 05:13 NT-Pro-B Natriuret Pep 324 pg/mL (0-450) 03/11/24 17:10 Total Protein 5.8 g/dL (6.6-8.7) L 03/15/24 05:21 Albumin 2.7 g/dL (3.5-5.2) L 03/15/24 05:21 Globulin 3.1 g/dL (1.3-4.6) 03/15/24 05:21 Lipase 143 U/L (13-60) H 03/13/24 05:54 Urine Color Dark yellow (Yellow) 03/11/24 11:58 Urine Appearance Slightly cloudy (CLEAR) 03/11/24 11:58 Urine pH 5 (5-7) 03/11/24 11:58 Ur Specific [place] 1.020 (1.005-1.030) 03/11/24 11:58 Urine Protein 1+ (Negative) H 03/11/24 11:58 Urine Glucose (UA) Norm (Normal) 03/11/24 11:58 Urine Ketones Negative (Negative) 03/11/24 11:58 Urine Blood Neg (Negative) 03/11/24 11:58 Urine Nitrate Negative (Negative) 03/11/24 11:58 Urine Bilirubin Neg (Negative) 03/11/24 11:58 Urine Urobilinogen Norm mg/dL (Negative) 03/11/24 11:58 Ur Leukocyte Esterase 2+ (Negative) H 03/11/24 11:58 Urine RBC 0-4 /hpf (0-2) H 03/11/24 11:58 Urine WBC 40-55 /hpf (0-5) H 03/11/24 11:58 Ur Squamous Epith Cells 0-4 /hpf (0-5) H 03/11/24 11:58 Amorphous Sediment Not Reportable 03/11/24 11:58 Urine Bacteria 1+ /hpf (NONE) H 03/11/24 11:58 Adenovirus (PCR) Not detected (NOT DETECT) 03/11/24 18:30 Lyme Ab (Western Blot) <0.90 index 03/11/24 11:00 C. pneumoniae DNA (PCR) Not detected (NOT DETECT) 03/11/24 18:30 C. difficile (PCR) Negative (Negative) 03/11/24 18:30 Coronavirus 229E (PCR) Not detected (NOT DETECT) 03/11/24 18:30 Hepatitis A IgM Ab Non-reactive (Nonreactive) 03/11/24 11:00 Hep Bs Antigen Non-reactive (Nonreactive) 03/11/24 11:00 Hep B Core IgM Ab Non-reactive (Nonreactive) 03/11/24 11:00 Hepatitis C Antibody Non-reactive (Nonreactive) 03/11/24 11:00 Human Metapneumovir PCR Not detected (NOT DETECT) 03/11/24 18:30 Influenza A (H1) PCR Not detected (NOT DETECT) 03/11/24 18:30 Influ A (H1/09) PCR Not detected (NOT DETECT) 03/11/24 18:30 Influenza A (H3) PCR Not detected (NOT DETECT) 03/11/24 18:30 Influenza Type A (PCR) Not detected (NOT DETECT) 03/11/24 18:30 Influenza Type B (PCR) Not detected (NOT DETECT) 03/11/24 18:30 M. pneumoniae (PCR) Not detected (NOT DETECT) 03/11/24 18:30 Parainfluenza 1 (PCR) Not detected (NOT DETECT) 03/11/24 18:30 Parainfluenza 2 (PCR) Not detected (NOT DETECT) 03/11/24 18:30 Parainfluenza 3 (PCR) Not detected (NOT DETECT) 03/11/24 18:30 Parainfluenza 4 (PCR) Not detected (NOT DETECT) 03/11/24 18:30 RSV Type A (PCR) Not detected (NOT DETECT) 03/11/24 18:30 RSV Type B (PCR) Not detected (NOT DETECT) 03/11/24 18:30 Entero/Rhino (PCR) Not detected (NOT DETECT) 03/11/24 18:30 SARS-CoV-2 (PCR) Not detected (NOT DETECT) 03/11/24 18:30 Vitals Last Vital Signs Temp 97.4 F L 03/15/24 08:28 Pulse 78 03/15/24 09:30 Resp 18 03/15/24 09:30 BP 127/82 03/15/24 08:28 Pulse Ox 97 03/15/24 09:30 O2 Del Method Room Air 03/15/24 09:30 O2 Flow Rate 1 03/13/24 11:51 Discharge Plan Discharge Patient Disposition: Xfer SNF Condition: Stable Prescriptions: New doxycycline monohydrate 100 mg Tablet 100 mg PO BID 10 Days Qty: 20 0RF cefdinir 300 mg capsule 300 mg PO BID 6 Days Qty: 12 0RF Continued aspirin 81 mg tablet,delayed release (DR/EC) 81 mg PO QDAY cetirizine 10 mg tablet 10 mg PO DAILY Qty: 30 5RF levothyroxine 50 mcg tablet 50 mcg PO DAILY Qty: 90 1RF prednisone 5 mg tablet 5 mg PO DAILY Qty: 30 0RF prednisone 20 mg tablet See Rx Instructions PO .COMPLEX PRN (Reason: joint pain flare) Qty: 30 0RF Rx Instructions: Take 1 or 2 tablets daily for 3-7 days as needed for arthritis flare. folic acid 1 mg tablet 1 mg PO DAILY Complete Multivitamin-Mineral 18-400 mg-mcg Tablet 1 tab PO QAM Fish Oil 1,000 mg (120 mg-180 mg) Capsule 1 cap PO DAILY pantoprazole 20 mg tablet,delayed release (DR/EC) See Rx Instructions .ROUTE .COMPLEX Rx Instructions: TAKE ONE TABLET BY MOUTH DAILY 30 MINUTES BEFORE meals ON EMPTY stomach Changed metoprolol tartrate 50 mg tablet 25 mg PO BID Qty: 90 5RF Held Enbrel 50 mg/mL (1 mL) syringe 50 mg SUBCUT .Q7days Qty: 4 5RF Hold Instructions: Resume on 03/24/24. Rx Instructions: ON SUNDAY methotrexate sodium 2.5 mg tablet See Rx Instructions .ROUTE .COMPLEX Hold Instructions: Resume on 03/24/24. Rx Instructions: TAKE 4 TABLETS BY MOUTH EVERY MORNING AND TAKE 4 TABLETS EVERY EVENING ON THE same DAY ONCE a WEEK NEEDED FOR rheumatoid arthritis. Discharge Orders: Discharge Order (Routine); Ordered 03/15/24 Ordered By: Lgoan Negron Referrals: [facility] [Outside] Charlie Moscoso [id number] [Primary Care Provider] - 1 week Discharge Diet: Cardiac Discharge Activity: Resume usual activity Patient Instructions: Doxycycline (By mouth), Cefdinir (By mouth), Opioid Safety Activity Restrictions/Additional Instructions: - Please recheck liver function studies and platelet count in 1 week Discharge Attestations Time Spent in Discharge Care*: greater than 30 min Quality Metrics Clinical Quality Measures [ No reported AMI, CVA or VTE this stay] Coding Level of Care Code 34066 Total time (in minutes) for Discharge: 45 Diagnoses Generalized weakness R53.1 Elevated transaminase level R74.01 Diarrhea R19.7 Acute kidney injury N17.9 Thrombocytopenia D69.6 Elevated lipase R74.8 Elevated troponin R79.89 Persistent cough for 3 weeks or longer R05.3 Abnormal urinalysis R82.90 Seropositive rheumatoid arthritis of multiple joints M05.79 High risk medication use Z79.899 Essential hypertension I10 Adult onset hypothyroidism E03.8 Tachycardia R00.0 Seasonal and perennial allergic rhinitis J30.89; J30.2 Tick-borne disease B88.2
[2024-03-15 11:22] VITALS: BP 135/75; PULSE 91; RESP 17; TEMP 36.4; O2SAT 97
--- NOTE | 2024-03-15 12:49 | PC.NURSE ---
This nurse attempted to call report x3 to [place] and was unsuccessful in reaching any staff. Will try again. Pt has discharged with ready transport for ride to facility.
--- NOTE | 2024-03-15 13:07 | PC.NURSE ---
Nurse attempted to call a 4th time and was placed on hold for 15 minutes and not able to speak to staff. Will attempt to contact [place] again.
[2024-03-15 13:10] VITALS: BP 135/75; PULSE 91; RESP 17; TEMP 36.4; O2SAT 97
[2024-03-18 17:15] LABS: E. Chaffeensis AB IGG <1:64; E. Chaffeensis AB IGM <1:20
[2024-03-19 22:44] LABS: RMSF IGG NOT DETECTED; RMSF IGM NOT DETECTED
== END 2024-03-15 12:46 | disposition skilled nursing facility (03) | DRG 690 ==
LOC: ER 13:05 → MEDSURG 14:27
PROVIDERS: Internal Medicine; Admitting Provider Hospitalist; Emergency Provider Family Medicine; PCP Nurse Practitioner; Visit Provider Family Medicine
DX: N39.0 Urinary tract infection, site not specified (principal); E87.1 Hypo-osmolality and hyponatremia; D84.9 Immunodeficiency, unspecified; N17.9 Acute kidney failure, unspecified; R53.1 Weakness; E86.0 Dehydration; E87.6 Hypokalemia; R05.3 Chronic cough; B88.2 Other arthropod infestations; R19.7 Diarrhea, unspecified; R29.6 Repeated falls; R00.0 Tachycardia, unspecified; I10 Essential (primary) hypertension; E03.9 Hypothyroidism, unspecified; M85.88 Other specified disorders of bone density and structure, other site; Z79.82 Long term (current) use of aspirin; Z79.52 Long term (current) use of systemic steroids; J30.2 Other seasonal allergic rhinitis; R58 Hemorrhage, not elsewhere classified; R74.01 Elevation of levels of liver transaminase levels; M05.79 Rheumatoid arthritis with rheumatoid factor of multiple sites without organ or systems involvement; D69.6 Thrombocytopenia, unspecified
CPT/HCPCS: 36415; 51702; 51798; 70450; 71045; 74176; 76770; 76857; 80053; 80074; 81001; 82274; 82550; 83605; 83630; 83690; 83735; 83880; 84484; 85007; 85025; 85610; 85651; 85730; 86140; 86618; 86666; 86757; 87040; 87045; 87086; 87177; 87209; 87427; 87449; 87486; 87493; 87581; 87633; 92523; 92610; 93005; 93306; 93970; 94640; 96365; 97110; 97161; 97167; 97530; 97535; 99285; J0696; J1956; J7030; J7512; J7613

== ENCOUNTER → 2024-04-22 09:26 | Outpatient (BNVA) | payer MEDICARE, SELFPAY | PROVIDERS: PCP Nurse Practitioner; Visit Provider Nurse Practitioner | DX: I10 Essential (primary) hypertension (principal); E03.8 Other specified hypothyroidism; J30.89 Other allergic rhinitis; J30.2 Other seasonal allergic rhinitis; R00.0 Tachycardia, unspecified | CPT/HCPCS: 80053; 80061; 84443; 85025 ==

== ENCOUNTER → 2024-04-23 | Outpatient (BNVA) | payer MEDICARE, SELFPAY | PROVIDERS: PCP Nurse Practitioner; Visit Provider Nurse Practitioner | DX: I10 Essential (primary) hypertension (principal); E03.8 Other specified hypothyroidism; J30.89 Other allergic rhinitis; J30.2 Other seasonal allergic rhinitis; R00.0 Tachycardia, unspecified; R73.9 Hyperglycemia, unspecified | CPT/HCPCS: 83036 ==

== ENCOUNTER → 2024-05-14 10:45 | Outpatient (BNVA) | payer MEDICARE, SELFPAY | PROVIDERS: PCP Nurse Practitioner; Visit Provider Internal Medicine Rheumatology | DX: M05.79 Rheumatoid arthritis with rheumatoid factor of multiple sites without organ or systems involvement (principal); Z79.899 Other long term (current) drug therapy; Z13.820 Encounter for screening for osteoporosis; M12.00 Chronic postrheumatic arthropathy [Jaccoud], unspecified site; Z71.85 Encounter for immunization safety counseling | CPT/HCPCS: 99214 ==

== ENCOUNTER → 2024-05-26 14:38 | Outpatient (BNVA) | payer MEDICARE, SELFPAY | PROVIDERS: PCP Nurse Practitioner; Visit Provider Nurse Practitioner | DX: I10 Essential (primary) hypertension (principal) | CPT/HCPCS: 80053; 81000 ==

== ENCOUNTER → 2024-06-11 13:42 | Outpatient (BNVA) | payer MEDICARE, SELFPAY | PROVIDERS: PCP Nurse Practitioner; Visit Provider Nurse Practitioner | DX: R05.9 Cough, unspecified (principal); R53.83 Other fatigue | CPT/HCPCS: 80053; 81000; 85025; 87400; 87426 ==

== ENCOUNTER 2024-06-18 17:48 | Inpatient (IN) | payer MEDICARE, SELFPAY ==
[2024-06-18] VITALS (7 sets, daily range): BP systolic 148–176; BP diastolic 79–92; PULSE 81–95; RESP 16; TEMP 37.4; O2SAT 86–97
--- NOTE | 2024-06-18 18:13 | XRR_ITS ---
PROCEDURE INFORMATION: Exam: XR Chest Exam date and time: 06/18/2024 6:19 PM Age: 79 years old Clinical indication: Dyspnea; Additional info: Weakness/covid + TECHNIQUE: Imaging protocol: Radiologic exam of the chest. Views: 1 view. COMPARISON: CR XR chest 1V portable [id number] 03/11/2024 9:54 AM FINDINGS: Lungs: Moderate interstitial opacities in a predominantly peripheral distribution, new compared to prior study, compatible with history of COVID. Pleural spaces: No pleural effusion or pneumothorax. Heart/Mediastinum: Heart size is within normal limits. Vasculature: Atherosclerotic calcifications of the aorta are noted. Bones/joints: No acute osseous abnormalities are seen. XR/XR chest 1V portable [id number] IMPRESSION: Moderate interstitial opacities in a predominantly peripheral distribution, new compared to prior study, compatible with history of COVID.
--- NOTE | 2024-06-18 18:14 | ED_ITS ---
HPI - Weakness 2 General: Chief complaint: Weakness Stated complaint: weakness covid positive Time Seen by Provider: 06/18/24 18:01 Source: patient and family Mode of arrival: ambulatory Limitations: no limitations History of Present Illness: Patient is a 79-year-old female who presents to the emergency department with family due to weakness that has been increasing over the past week. She tested positive for COVID last Sunday, had a day or 2 of symptoms prior to that. She notes that she has had the progressive weakness accompanied by diarrhea and intermittent fevers. She reportedly recently started Farxiga at the end of March for diabetes, also has a history of hypothyroid and rheumatoid arthritis. She notes that she recently had labs with primary care that showed drop in electrolytes. Family in the room notes that patient has been drinking significantly less over the past week. Patient is denying any chest pain, shortness of breath, dysuria or hematuria, abdominal pain, dizziness or lightheadedness, or other symptoms at this time. Other than starting the Farxiga, patient has had her magnesium, metoprolol, and Enbrel held by primary care. Patient was noted to be afebrile at this time with stable vitals. MD Complaint: generalized weakness Onset (ago): week(s) (1) Duration: progressively worsening Location: generalized Context: other (Diagnosed with COVID last Sunday) Associated symptoms: Reports fever(s); Denies chest pain, chills, dysuria, headache(s), nausea or vomiting Review of Systems 2 General: Reports: 10 or more systems reviewed and unremarkable except in HPI and below Const: Reports: fever(s) and other (Weakness); Denies: chills Eyes: Denies: change in vision ENMT: Denies: throat pain, ear or mastoid pain or nasal discharge Card: Denies: chest pain, palpitations, swelling of feet/ankles or lightheadedness Resp: Denies: dyspnea, productive cough or wheezing GI: Reports: diarrhea; Denies: abdominal pain, nausea, vomiting or constipation : Denies: flank pain, difficulty voiding, dysuria or urinary frequency Musc: Denies: neck pain, back pain or joint pain Skin/Breast: Denies: rash Neuro: Denies: headache(s) or numbness in extremities PFSH ED 2 PFSH: Medical History Diabetes mellitus with hyperglycemia, without long-term current use of insulin Seropositive rheumatoid arthritis of multiple joints Diagnosed 2003, on steroids and DMARD therapy History of cardiovascular stress test in 2009 low risk for coronary events Osteoarthritis Seasonal and perennial allergic rhinitis Tachycardia sinus tachycardia, on metoprolol Essential hypertension Adult onset hypothyroidism Osteopenia after menopause Jaccoud's arthropathy of hand Other nursing home (current) drug therapy High risk medication use Enbrel and prednisone 03/2024 Surgical History H/O breast biopsy right, benign Family History Mother Breast cancer Father CAD (coronary artery disease) Other Diabetes Denies family history of Rheumatoid arthritis Chronic kidney disease (CKD) Systemic lupus erythematosus (SLE) in adult Hypertension Social History Smoking and tobacco/nicotine status: never used tobacco/nicotine Second hand smoke exposure: No Alcohol intake: never Substance/Drug Use: never Adopted: No Caregiver/support person: No Lives independently: Yes Household members: spouse Housing: House Marital status: Number of children: 0 service: No Current occupational status: retired Do you think of yourself as: Straight/Heterosexual Current gender identity: Female Physical Exam 2 Const: COMMON NORMALS: no acute distress, patient oriented x3, no limitations, alert and well nourished GENERAL APPEARANCE: cooperative and comfortable HENMT: COMMON NORMALS: normocephalic, atraumatic and moist oral mucous membranes HEAD & SCALP: normocephalic and atraumatic Eye: COMMON NORMALS: Equal, round and reactive pupils present, EOMs intact bilaterally and conjunctivae normal CONJUNCTIVA: Yes conjunctivae normal P UPIL: Yes Equal, round and reactive pupils present Neck/C-Spine: COMMON NORMALS: full ROM and no meningeal signs Resp: COMMON NORMALS: normal respiratory effort, No retractions, No use of accessory muscles and clear to auscultation bilaterally AUSCULTATION: clear to auscultation bilaterally Cardio: COMMON NORMALS: regular rate and regular rhythm RATE: regular rate RHYTHM: regular rhythm OTHER: 2 out of 6 systolic ejection murmur appr eciated mostly to the right sternal border GI: COMMON NORMALS: Normal to inspection, nondistended, normoactive bowel sounds present, Soft to palpation and non-tender AUSCULTATION: Yes normoactive bowel sounds PALPATION: Yes Soft to palpation Extremity: COMMON NORMALS: normal to inspection, full ROM and capillary refill normal NARRATIVE EXTREMITY EXAM: No peripheral edema Neuro: COMMON NORMALS: patient oriented x3, moves all extremities, no focal motor deficits and no sensory deficits noted SENSORIUM/ORIENTATION: Yes alert MENINGEAL SIGNS: Yes no meningeal signs Skin: COMMON NORMALS: no rashes or lesions noted GENERAL SKIN EXAM: no rashes or lesions noted Course 2 Vital Signs: Vital signs: Vital Signs Temperature 99.3 F 06/18/24 17:53 Pulse Rate 95 06/18/24 18:30 Respiratory Rate 16 06/18/24 17:53 Blood Pressure 176/88 06/18/24 18:30 Pulse Oximetry 94 06/18/24 21:40 Oxygen Delivery Me thod Nasal Cannula 06/18/24 18:30 Oxygen Flow Rate 3 06/18/24 21:40 MDM - Weakness Medical Decision Making Patient diagnosed with COVID last Sunday, notes increasing weakness with intermittent fevers and new onset diarrhea. Overall her physical examination was unremarkable, normal cardiopulmonary auscultation and did not appear fluid overloaded. Does report history of hypothyroid as well as new diagnosis of diabetes. CBC did not reveal any signs of anemia or infection. CMP showed no serious abnormalities, mild bump in LFTs and T. bili. She was not having any abdominal pain or nausea vomiting. Her baseline Trope 19, and EKG reviewed with Dr. Hernandez initially showed normal sinus rhythm with no acute ST segment changes and this was unchanged on the second EKG. Urinalysis showed 4+ bacteria however could potentially be contaminated due to squamous cells. Her chest x-ray showed signs of a recent viral pulmonary infection. Went to recheck the patient after everything had come back, and she is noted to be in the low 90s on 2 L of oxygen. When she arrived she was 94% on room air, however was immediately placed on 2 L due to noticing it drop. RT was called to do an ambulatory pulse oximetry testing and found her to drop to 86% with ambulation. Spoke with Dr. Negron, who recommends adding ABG, BNP, and D-dimer at this time. He did come and evaluate the patient here in the emergency department and kindly accepted [facility] Dr. Hernandez putting in admit orders at this time and he is informed of patient's case here in the emergency department and agrees with disposition. Lab Data 06/18/24 18:16 06/18/24 18:16 Radiology Impressions Chest X-Ray 06/18/24 18:13 IMPRESSION: Moderate interstitial opacities in a predominantly peripheral distribution, new compared to prior study, compatible with history of COVID. Laboratory Results WBC 8.05 10^3/uL (3.29-11.43) 06/18/24 18:16 RBC 5.21 10^6/uL (3.85-5.65) 06/18/24 18:16 Hgb 15.90 g/dL (11.27-16.99) 06/18/24 18:16 Hct 47.8 % (36-47) H 06/18/24 18:16 MCV 91.7 fl (85-98) 06/18/24 18:16 MCH 30.5 pg (27-33) 06/18/24 18:16 MCHC 33.3 g/dL (30-55) 06/18/24 18:16 RDW 14.0 % (12.1-15.1) 06/18/24 18:16 Plt Count 316 10^3/cmm (157-399) 06/18/24 18:16 MPV 9.8 fL (7.4-10.4) 06/18/24 18:16 Neut % (Auto) 75.4 % 06/18/24 18:16 Lymph % (Auto) 12.0 % 06/18/24 18:16 [place] % (Auto) 10.8 % 06/18/24 18:16 Eos % (Auto) 0.7 % 06/18/24 18:16 Baso % (Auto) 0.2 % 06/18/24 18:16 Neut # (Auto) 6.06 10^3/uL (1.8-7.7) 06/18/24 18:16 Lymph # (Auto) 1.0 10^3/uL (0.8-4.8) 06/18/24 18:16 [place] # (Auto) 0.9 10^3/uL (0.2-0.9) 06/18/24 18:16 Eos # (Auto) 0.1 10^3/uL (0.0-0.8) 06/18/24 18:16 Baso # (Auto) 0.0 10^3/uL (0.0-0.1) 06/18/24 18:16 Nucleated RBC % (auto) 0 % 06/18/24 18:16 Nucleated RBCs # 0.0 /100WBC 06/18/24 18:16 D-Dimer 2.53 ug/mLFEU (0-0.59) H 06/18/24 18:16 Specimen Type Arterial 06/18/24 22:24 Sample Site Brachial, right 06/18/24 22:24 ABG pH 7.48 (7.35-7.45) H 06/18/24 22:24 ABG pCO2 30.7 mmHg (35-45) L 06/18/24 22:24 ABG pO2 67.2 mmHg (80.0-100.0) L 06/18/24 22:24 ABG HCO3 23.0 mmol/L (22-26) 06/18/24 22:24 ABG O2 Saturation 94.8 06/18/24 22:24 ABG Base Excess 0.4 mmol/L (-2.0-2.0) 06/18/24 22:24 [place] Test N/a 06/18/24 22:24 A-a O2 Gradient 5.6 mmHg (5-10) 06/18/24 22:24 Hematocrit 44.2 % (37-47) 06/18/24 22:24 Hgb O2 Saturation 92.5 % (95-100) L 06/18/24 22:24 Carboxyhemoglobin 1.3 %THgb (0.4-20.1) 06/18/24 22:24 Methemoglobin 1.0 % (0.4-1.5) 06/18/24 22:24 Total Hemoglobin 14.4 g/dL (12-16) 06/18/24 22:24 Sodium 138.0 mmol/L (131-143) 06/18/24 22:24 Potassium 3.3 mmol/L (3.5-5.0) L 06/18/24 22:24 Glucose 109.0 mg/dL (70-115) 06/18/24 22:24 Ionized Calcium 1.1 mmol/L (1.1-1.4) 06/18/24 22:24 O2 Delivery Device Nc 06/18/24 22:24 O2 Liters/Min 2.0 % 06/18/24 22:24 Participant Administrator ID [email or web address] 06/18/24 22:24 Sodium 135 mmol/L (136-145) L 06/18/24 18:16 Potassium 3.7 mmol/L (3.5-5.1) 06/18/24 18:16 Chloride 98 mmol/L (98-107) 06/18/24 18:16 Carbon Dioxide 24 mmol/L (22-29) 06/18/24 18:16 Anion Gap 16.7 (5-19) 06/18/24 18:16 BUN 17 mg/dL (8-23) 06/18/24 18:16 Creatinine 0.7 mg/dL (0.5-0.9) 06/18/24 18:16 GFR Calculation Not Reportable 06/18/24 18:16 Glucose 131 mg/dL (65-115) H 06/18/24 18:16 Calculated Osmolality 283 mOsm/kg (285-295) L 06/18/24 18:16 Calcium 8.6 mg/dL (8.5-10.5) 06/18/24 18:16 Magnesium 1.9 mg/dL (1.7-2.3) 06/18/24 18:16 Total Bilirubin 1.4 mg/dL (0.15-1.2) H 06/18/24 18:16 AST 89 U/L (0-32) H 06/18/24 18:16 ALT 78 U/L (0-33) H 06/18/24 18:16 Alkaline Phosphatase 101 U/L (35-105) 06/18/24 18:16 Troponin T Baseline 19 ng/L (0-10) H 06/18/24 18:16 Troponin T 120 Minute 17.24 ng/L (0-10) H 06/18/24 20:45 Delta Troponin T -1.76 ABS# (0-10) L 06/18/24 20:45 NT-Pro-B Natriuret Pep 852 pg/mL (0-450) H 06/18/24 20:45 Total Protein 7.2 g/dL (6.6-8.7) 06/18/24 18:16 Albumin 3.1 g/dL (3.5-5.2) L 06/18/24 18:16 Globulin 4.1 g/dL (1.3-4.6) 06/18/24 18:16 TSH 2.32 uIU/mL (0.27-4.20) 06/18/24 18:16 Urine Color Yellow (Yellow) 06/18/24 20:06 Urine Appearance Cloudy (CLEAR) A 06/18/24 20:06 Urine pH 6 (5-7) 06/18/24 20:06 Ur Specific [place] 1.010 (1.005-1.030) 06/18/24 20:06 Urine Protein 1+ (Negative) H 06/18/24 20:06 Urine Glucose (UA) Norm (Normal) 06/18/24 20:06 Urine Ketones Negative (Negative) 06/18/24 20:06 Urine Blood Neg (Negative) 06/18/24 20:06 Urine Nitrate Negative (Negative) 06/18/24 20:06 Urine Bilirubin Neg (Negative) 06/18/24 20:06 Urine Urobilinogen 8 mg/dL (Negative) H 06/18/24 20:06 Ur Leukocyte Esterase Negative (Negative) 06/18/24 20:06 Urine RBC None /hpf (0-2) 06/18/24 20:06 Urine WBC 5-10 /hpf (0-5) H 06/18/24 20:06 Ur Squamous Epith Cells 5-10 /hpf (0-5) H 06/18/24 20:06 Amorphous Sediment Not Reportable 06/18/24 20:06 Urine Bacteria 4+ /hpf (NONE) H 06/18/24 20:06 Urine Mucus 2+ /hpf 06/18/24 20:06 All radiology interpretation(s) finalized by discharge Discharge Plan Discharge Patient Disposition: Admitted As Inpatient Admit Provider: Logan Negron Clinical Impression: Weakness, Hypoxia Condition: Stable Coding Level of Care Code ED Estate Attorney for Chg Fwd Related Data Home Medications Medication Instructions Recorded Confirmed aspirin 81 mg tablet,delayed 81 mg PO QDAY 10/30/19 06/16/24 release multivitamin-ferrous 1 tab PO QAM 03/11/24 06/16/24 fumarate-folic acid 18 mg-400 mcg tablet (Complete Multivitamin-Multimineral) omega 1-bkd-wyy-fish oil 1,000 mg 1 cap PO DAILY 03/11/24 06/16/24 (120 mg-180 mg) capsule (Fish Oil) pantoprazole 20 mg tablet,delayed See Rx Instructions .Route .COMPLEX 03/11/24 06/16/24 release cholecalciferol (vitamin D3) 50 50 mcg PO DAILY 04/22/24 06/16/24 mcg (2,000 unit) capsule duloxetine 30 mg capsule,delayed 30 mg PO DAILY 04/22/24 06/16/24 release magnesium aspart,citrate,oxide mg PO 04/22/24 06/16/24 potassium citrate 99 mg capsule mg PO 04/22/24 06/16/24 Previous Rx's Medication Instructions Recorded cetirizine 10 mg tablet 10 mg PO DAILY #30 tabs 04/22/24 levothyroxine 50 mcg tablet 50 mcg PO DAILY #90 tabs 04/22/24 metoprolol tartrate 25 mg tablet 25 mg PO BID #60 tabs 04/22/24 dapagliflozin propanediol 10 mg 10 mg PO QAM #30 tabs 04/25/24 tablet (Farxiga) metformin 500 mg tablet,extended 500 mg PO DAILY #30 tabs 04/25/24 release 24 hr etanercept 50 mg/mL (1 mL) 50 mg SUBCUT .Q7days #4 mL 05/14/24 subcutaneous syringe (Enbrel) prednisone 20 mg tablet See Rx Instructions PO .COMPLEX 05/14/24 PRN joint pain flare #30 tabs prednisone 5 mg tablet 5 mg PO DAILY #90 tabs 05/14/24 tamsulosin 0.4 mg capsule (Flomax) 0.4 mg PO BEDTIME #30 caps 05/26/24 valsartan 80 mg tablet (Diovan) 80 mg PO DAILY #30 tabs 05/26/24 albuterol sulfate 90 mcg/actuation 2 puff inhalation Q6H PRN 06/11/24 aerosol inhaler (Ventolin HFA) shortness of breath or wheezing #8.5 grams Allergies Allergy/AdvReac Type Severity Reaction Status Date / Time No Known Allergies Allergy Verified 06/11/24 13:26
[2024-06-18] MEDS: sodium chloride 0.9% 1,000 ML 999 ML IV (18:21)
[2024-06-18 18:22] LABS: Basophils % 0.2 %; Eosinophils # 0.1 10^3/uL (0.0-0.8); Eosinophils % 0.7 %; Hematocrit 47.8 % (36-47); Mean Corpuscular HGB Conc 33.3 g/dL (30-55); Mean Corpuscular Hemoglobin 30.5 pg (27-33); Mean Corpuscular Volume 91.7 fl (85-98); Mean Platelet Volume 9.8 fL (7.4-10.4); Monocytes # 0.9 10^3/uL (0.2-0.9); Monocytes % 10.8 %; Neutrophils # 6.06 10^3/uL (1.8-7.7); Neutrophils % 75.4 %; Nucleated Red Blood Cells % 0 %; Platelet Count 316 10^3/cmm (157-399); Red Blood Count 5.21 10^6/uL (3.85-5.65); White Blood Count 8.05 10^3/uL (3.29-11.43)
--- NOTE | 2024-06-18 18:23 | ECG_ITS ---
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 Measurements Intervals [place] Rate: 100 P: 44 MO: 161 QRS: -41 QRSD: 65 T: 26 QT: 334 QTc: 431 Interpretive Statements SINUS TACHYCARDIA WITH OCCASIONAL SUPRAVENTRICULAR PREMATURE COMPLEXES LEFT AXIS DEVIATION [QRS AXIS < -30] LOW QRS VOLTAGE IN PRECORDIAL LEADS [QRS DEFLECTION < 1.0 mV IN CHEST LEADS] POSSIBLE ANTERIOR MYOCARDIAL INFARCTION , PROBABLY OLD [30 ms Q WAVE IN V3/V4, OR R < 0.2 mV IN V4] Compared to ECG 03/11/2024 15:44:17 Left-axis deviation now present Low QRS voltage now present Sinus rhythm no longer present Myocardial infarct finding still present Electronically Signed On 06-19-2024 22:31:49 CDT by Hi Bruner M.D. [id number]
[2024-06-18 18:50] LABS: Alanine Aminotransferase 78 U/L (0-33); Albumin Level 3.1 g/dL (3.5-5.2); Alkaline Phosphatase 101 U/L (35-105); Anion Gap 16.7 (5-19); Aspartate Amino Transferase 89 U/L (0-32); Blood Urea Nitrogen 17 mg/dL (8-23); Calcium 8.6 mg/dL (8.5-10.5); Carbon Dioxide 24 mmol/L (22-29); Chloride 98 mmol/L (98-107); Creatinine Clr Calc Pharmacy 53.6813; Globulin 4.1 g/dL (1.3-4.6); Glucose 131 mg/dL (65-115); Magnesium 1.9 mg/dL (1.7-2.3); Osmolality Calculated 283 mOsm/kg (285-295); Potassium 3.7 mmol/L (3.5-5.1); Sodium 135 mmol/L (136-145); Thyroid Stimulating Hormone 2.32 uIU/mL (0.27-4.20); Total Bilirubin 1.4 mg/dL (0.15-1.2); Total Protein 7.2 g/dL (6.6-8.7)
[2024-06-18 19:03] LABS: Troponin(5th) Baseline 19 ng/L (0-10)
--- NOTE | 2024-06-18 20:31 | ECG_ITS ---
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 Measurements Intervals [place] Rate: 86 P: 24 DE: 167 QRS: -30 QRSD: 75 T: 19 QT: 366 QTc: 438 Interpretive Statements SINUS RHYTHM LOW QRS VOLTAGE IN PRECORDIAL LEADS [QRS DEFLECTION < 1.0 mV IN CHEST LEADS] ANTERIOR MYOCARDIAL INFARCTION , PROBABLY OLD [40+ ms Q WAVE AND/OR ST/T ABNORMALITY IN V3/V4] INFERIOR MYOCARDIAL INFARCTION , PROBABLY OLD [40+ ms Q WAVE AND/OR ST/T ABNORMALITY IN II/aVF] Compared to ECG 06/18/2024 18:23:02 Sinus tachycardia no longer present Left-axis deviation no longer present Myocardial infarct finding still present Electronically Signed On 06-19-2024 22:31:24 CDT by Hi Bruner M.D. [id number]
[2024-06-18 20:38] LABS: Urine Appearance Cloudy (CLEAR); Urine Color Yellow (Yellow)
[2024-06-18 20:39] LABS: Add Urine Microscopic? YES; Bilirubin Urine Neg (Negative); Blood Urine Neg (Negative); Glucose Urine UA Norm (Normal); Ketones Urine Negative (Negative); Leukocyte Esterase Urine Negative (Negative); Nitrate Urine Negative (Negative); Protein Urine 1+ (Negative); Urobilinogen Urine 8 mg/dL (Negative); pH Urine 6 (5-7)
[2024-06-18 20:40] LABS: Add Urine Culture? Yes; Bacteria Urine 4+ /hpf; Mucus Urine 2+ /hpf
[2024-06-18 21:37] LABS: Troponin 5 2HR 17.24 ng/L (0-10)
[2024-06-18 21:42] LABS: Troponin 5 2HR Delta -1.76 ABS# (0-10)
[2024-06-18 22:26] LABS: NT Pro B Type Natriuretic Pept 852 pg/mL (0-450)
[2024-06-18 22:26] LABS: D Dimer 2.53 ug/mLFEU (0-0.59)
[2024-06-18 22:36] LABS: ABG PCO2 30.7 mmHg (35-45); ABG PH Result 7.48 (7.35-7.45); Alveolar-Arterial Oxygen Gradi 5.6 mmHg (5-10); Arterial Blood Gas Hematocrit 44.2 % (37-47); Base Excess ABG 0.4 mmol/L (-2.0-2.0); Blood Gas Sample Site Brachial, right; Blood Gas Sample Type Arterial; Carboxyhemoglobin 1.3 %THgb (0.4-20.1); HGB O2 Sat 92.5 % (95-100); Ionized Calcium Level - ABG 1.1 mmol/L (1.1-1.4); Oxygen Device NC; Oxygen Saturation ABG 94.8; PO2 ABG 67.2 mmHg (80.0-100.0); Potassium Level - ABG 3.3 mmol/L (3.5-5.0); Total Hemoglobin 14.4 g/dL (12-16)
--- NOTE | 2024-06-18 22:39 | CTR_ITS ---
PROCEDURE INFORMATION: Exam: CTA Chest With Contrast Exam date and time: 06/18/2024 11:15 PM Age: 79 years old Clinical indication: Other: Hypoxia; Additional info: Hypoxia, covid TECHNIQUE: Imaging protocol: Computed tomographic angiography of the chest with contrast. Exam focused on the arteries. 3D rendering (Not supervised by radiologist): MIP and/or 3D reconstructed images were created by the technologist. Radiation optimization: All CT scans at this facility use at least one of these dose optimization techniques: automated exposure control; mA and/or kV adjustment per patient size (includes targeted exams where dose is matched to clinical indication); or iterative reconstruction. Contrast material: OMNI 350; Contrast volume: 60 ml; Contrast route: INTRAVENOUS (IV); COMPARISON: CR (CHEST, ) 06/18/2024 6:19 PM RADIATION DOSE METRICS: Total DLP (mGy-cm): 391 FINDINGS: Pulmonary arteries: The pulmonary arteries are well visualized to the distal segmental and in some cases subsegmental level. No filling defects are identified to suggest pulmonary artery embolism. Main pulmonary artery is normal in size. There is no evidence of right heart strain. Aorta: Atherosclerotic calcifications of the aorta are present. No aneurysm is identified. Lungs: Extensive bilateral interstitial and ground-glass opacities in a predominantly peripheral distribution consistent with history of COVID. Mild posterior lower lobe atelectasis and/or small consolidations. Pleural spaces: Trace bilateral pleural effusions. No pneumothorax. Heart: Mild cardiomegaly. No pericardial effusion or pericardial thickening. Coronary arteries: Moderate coronary artery calcification. Lymph nodes: No enlarged lymph nodes are identified. Bones/joints: No acute osseous abnormalities are seen. Soft tissues: The soft tissues are within normal limits. CT/CT angio chest PE protcl [id number] IMPRESSION: 1. No evidence of pulmonary embolism. 2. Extensive bilateral interstitial and ground-glass opacities in a predominantly peripheral distribution consistent with history of COVID. 3. Trace pleural effusions with adjacent atelectasis and/or small consolidations.
--- NOTE | 2024-06-18 22:50 | P.HP_ITS ---
Providers/Chief Complaint 2 Primary Care Provider: Charlie Moscoso, JULIETAC Chief Complaint: weakness covid positive History of Present Illness Abraham Santa is a 79 year old female past medical history of diabetes mellitus, seropositive rheumatoid arthritis on chronic steroid and Enbrel, hypertension, hypothyroidism, who presents [facility] due to fatigue, malaise, cough, diarrhea, and COVID-19. Currently patient is alert to person, to place, not to time her daughter is at bedside, daughter helps with the history taking. Abraham a lot of weeks ago was diagnosed with COVID, before that she was having fatigue, malaise, cough, fevers, chills. She was out of the window for treatment for COVID-19, her symptoms progressed, worsening fatigue, poor appetite, diarrhea, she does report intermittent shortness of breath but no chest pain, no lightheadedness, no dizziness. Review of Systems 2 Const: Reports: fatigue and malaise Card: Denies: chest pain Resp: Reports: dyspnea Medications/Allergies Home Medications Medication Instructions Recorded Confirmed Last Taken Type aspirin 81 mg tablet,delayed 81 mg PO QDAY 10/30/19 06/16/24 03/10/24 History release multivitamin-ferrous 1 tab PO QAM 03/11/24 06/16/24 03/10/24 History fumarate-folic acid 18 mg-400 mcg tablet (Complete Multivitamin-Multimineral) omega 3-lvi-pga-fish oil 1,000 mg 1 cap PO DAILY 03/11/24 06/16/24 03/10/24 History (120 mg-180 mg) capsule (Fish Oil) pantoprazole 20 mg tablet,delayed See Rx Instructions .Route .COMPLEX 03/11/24 06/16/24 03/10/24 History release cetirizine 10 mg tablet 10 mg PO DAILY #30 tabs 04/22/24 06/16/24 Unknown Rx cholecalciferol (vitamin D3) 50 50 mcg PO DAILY 04/22/24 06/16/24 Unknown History mcg (2,000 unit) capsule duloxetine 30 mg capsule,delayed 30 mg PO DAILY 04/22/24 06/16/24 Unknown History release levothyroxine 50 mcg tablet 50 mcg PO DAILY #90 tabs 04/22/24 06/16/24 Unknown Rx magnesium aspart,citrate,oxide mg PO 04/22/24 06/16/24 Unknown History metoprolol tartrate 25 mg tablet 25 mg PO BID #60 tabs 04/22/24 06/16/24 Unknown Rx potassium citrate 99 mg capsule mg PO 04/22/24 06/16/24 Unknown History dapagliflozin propanediol 10 mg 10 mg PO QAM #30 tabs 04/25/24 06/16/24 Unknown Rx tablet (Farxiga) metformin 500 mg tablet,extended 500 mg PO DAILY #30 tabs 04/25/24 06/16/24 Unknown Rx release 24 hr etanercept 50 mg/mL (1 mL) 50 mg SUBCUT .Q7days #4 mL 05/14/24 06/16/24 Unknown Rx subcutaneous syringe (Enbrel) prednisone 20 mg tablet See Rx Instructions PO .COMPLEX 05/14/24 06/16/24 Unknown Rx PRN joint pain flare #30 tabs prednisone 5 mg tablet 5 mg PO DAILY #90 tabs 05/14/24 06/16/24 Unknown Rx tamsulosin 0.4 mg capsule (Flomax) 0.4 mg PO BEDTIME #30 caps 05/26/24 06/16/24 Unknown Rx valsartan 80 mg tablet (Diovan) 80 mg PO DAILY #30 tabs 05/26/24 06/16/24 Unknown Rx albuterol sulfate 90 mcg/actuation 2 puff inhalation Q6H PRN 06/11/24 06/16/24 Unknown Rx aerosol inhaler (Ventolin HFA) shortness of breath or wheezing #8.5 grams Allergies Allergy/AdvReac Type Severity Reaction Status Date / Time No Known Allergies Allergy Verified 06/11/24 13:26 PFSH Acute 2 PFSH: Medical History Diabetes mellitus with hyperglycemia, without long-term current use of insulin Seropositive rheumatoid arthritis of multiple joints Diagnosed 2003, on steroids and DMARD therapy History of cardiovascular stress test in 2009 low risk for coronary events Osteoarthritis Seasonal and perennial allergic rhinitis Tachycardia sinus tachycardia, on metoprolol Essential hypertension Adult onset hypothyroidism Osteopenia after menopause Jaccoud's arthropathy of hand 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 High risk medication use Enbrel and prednisone 03/2024 Surgical History H/O breast biopsy right, benign Family History Mother Breast cancer Father CAD (coronary artery disease) Other Diabetes Denies family history of Rheumatoid arthritis Chronic kidney disease (CKD) Systemic lupus erythematosus (SLE) in adult Hypertension Social History Smoking and tobacco/nicotine status: never used tobacco/nicotine Second hand smoke exposure: No Alcohol intake: never Substance/Drug Use: never Adopted: No Caregiver/support person: No Lives independently: Yes Household members: spouse Housing: House Marital status: Number of children: 0 service: No Current occupational status: retired Do you think of yourself as: Straight/Heterosexual Current gender identity: Female Vitals/I&O/Wt Last Vital Signs Temp 99.3 F 06/18/24 17:53 Pulse 95 06/18/24 18:30 Resp 16 06/18/24 17:53 BP 176/88 06/18/24 18:30 Pulse Ox 94 06/18/24 21:40 O2 Del Method Nasal Cannula 06/18/24 18:30 O2 Flow Rate 3 06/18/24 21:40 Weight last 48 hrs Weight 73.936 kg Physical Exam 2 Const: COMMON NORMALS: no acute distress and patient oriented x3 HENMT: COMMON NORMALS: normocephalic HEAD & SCALP: normocephalic Eye: COMMON NORMALS: Equal, round and reactive pupils present Neck/C-Spine: COMMON NORMALS: no JVD Resp: COMMON NORMALS: normal respiratory effort, No retractions and No use of accessory muscles AUSCULTATION: wheezes Cardio: COMMON NORMALS: regular rate, regular rhythm, S1 normal heart sound present and S2 normal heart sound present RATE: regular rate RHYTHM: r egular rhythm HEART SOUNDS: S1 normal heart sound present and S2 normal heart sound present GI: COMMON NORMALS: Normal to inspection, nondistended, normoactive bowel sounds present, Soft to palpation and non-tender Extremity: COMMON NORMALS: no calf tenderness and no pedal edema Neuro: COMMON NORMALS: patient oriented x3, CN's II-XII intact bilaterally and moves all extremities Psych: COMMON NORMALS: mental status grossly normal Data 06/18/24 18:16 09/18/24 18:16 A&P Assessment and plan (1) Acute hypoxic respiratory failure: (2) Pneumonia due to COVID-19 virus: Plan Acute hypoxic respiratory failure ? Secondary to COVID-19 pneumonia ? With immunocompromise state, chronic prednisone, Enbrel ? Acute hypoxia 2 L crackles in lung voss ? Plan ? Order CT angiogram the chest Monitor respiratory status closely ? DuoNeb ? Budesonide ? Given immunocompromise state, acute hypoxia will start on treatment for COVID- 19, remdesivir 200 mg IV once followed by 100 mg IV every 24 hours for 4 remaining days ? Decadron 6 mg IV push every 24 hours ? Pro-Ivan, CRP ? Low-dose sliding scale -Dehydration, IV fluids # Transaminitis, likely a component of COVID-19, but also likely secondary to metformin Full code Lovenox for DVT prophylaxis Attestations 2 Medical Necessity Statement*: Patient requires hospitalization, for COVID-19 pneumonia, acute hypoxia, acute hypoxic respiratory failure, inpatient, greater than 2 minutes Diagnoses Acute hypoxic respiratory failure J96.01 Pneumonia due to COVID-19 virus U07.1; J12.82
[2024-06-18 23:09] LABS: C Reactive Protein 71.5 mg/L (0.0-4.9)
[2024-06-18 23:16] LABS: Procalcitonin 0.31 ng/mL (0-0.5)
[2024-06-18] MEDS: iohexol 350 mg/mL 500 mL Btl (per mL) IV (23:20)
[2024-06-18 23:49] LABS: Lactic Sepsis W/Reflex 1.8 mmol/L (0.5-2.2)
[2024-06-19] VITALS (15 sets, daily range): BP systolic 136–172; BP diastolic 75–95; PULSE 60–81; RESP 15–20; TEMP 36.4–36.9; O2SAT 90–95
--- NOTE | 2024-06-19 00:31 | ECG_ITS ---
[facility] Test Date: 2024-06-19 Pat Name: Abraham Santa Department: Room: 262 Gender: Female Strategy Manager: : 1945 Requested By: Foreign Celis Order Number: [id number] Deborah MD: Hi Bruner M.D. Measurements Intervals [place] Rate: 79 P: 45 VA: 178 QRS: -23 QRSD: 74 T: 62 QT: 373 QTc: 428 Interpretive Statements SINUS RHYTHM LOW QRS VOLTAGE IN PRECORDIAL LEADS [QRS DEFLECTION < 1.0 mV IN CHEST LEADS] POSSIBLE ANTERIOR MYOCARDIAL INFARCTION , PROBABLY OLD [30 ms Q WAVE IN V3/V4, OR R < 0.2 mV IN V4] Compared to ECG 06/18/2024 20:37:32 No significant changes Electronically Signed On 06-19-2024 22:29:38 CDT by Hi Bruner M.D. [email or web address]
[2024-06-19 01:07] LABS: Troponin 5 6HR 17.43 ng/L (0-10)
[2024-06-19 01:09] LABS: Troponin 5 6HR Delta -1.57 ng/L (0-12)
[2024-06-19] MEDS: dexamethasone 10 mg/mL INJ 6 MG IVP ×2 (01:40→23:54)
[2024-06-19] MEDS: pantoprazole 40 mg SDV IVP ×2 (01:40→23:54)
[2024-06-19] MEDS: sodium chloride 0.9% 1,000 ML 75 ML IV (01:40)
[2024-06-19] MEDS: remdesivir 200 MG in sodium chloride 0.9% (100 ml) 60 ML 100 MG IV (01:41)
[2024-06-19] MEDS: metoprolol tartrate 25 mg Tablet PO ×3 (01:42→17:27)
[2024-06-19 05:32] LABS: Basophils % 0.2 %; Eosinophils # 0.1 10^3/uL (0.0-0.8); Hematocrit 41.4 % (36-47); Lymphocytes # 0.4 10^3/uL (0.8-4.8); Lymphocytes % 6.1 %; Mean Corpuscular HGB Conc 33.3 g/dL (30-55); Mean Corpuscular Hemoglobin 30.7 pg (27-33); Mean Corpuscular Volume 92.2 fl (85-98); Monocytes # 0.4 10^3/uL (0.2-0.9); Monocytes % 6.1 %; Neutrophils # 5.22 10^3/uL (1.8-7.7); Neutrophils % 86.1 %; Nucleated Red Blood Cells % 0 %; Platelet Count 261 10^3/cmm (157-399); Red Blood Count 4.49 10^6/uL (3.85-5.65); Red Cell Distribution Width 13.9 % (12.1-15.1); White Blood Count 6.06 10^3/uL (3.29-11.43)
[2024-06-19 05:52] LABS: Alanine Aminotransferase 58 U/L (0-33); Albumin Level 2.5 g/dL (3.5-5.2); Alkaline Phosphatase 86 U/L (35-105); Anion Gap 14.9 (5-19); Aspartate Amino Transferase 78 U/L (0-32); Blood Urea Nitrogen 14 mg/dL (8-23); Calcium 7.7 mg/dL (8.5-10.5); Carbon Dioxide 22 mmol/L (22-29); Chloride 107 mmol/L (98-107); Creatinine Clr Calc Pharmacy 53.6813; Globulin 3.4 g/dL (1.3-4.6); Glucose 159 mg/dL (65-115); Magnesium 1.9 mg/dL (1.7-2.3); Osmolality Calculated 294 mOsm/kg (285-295); Phosphorus 2.3 mg/dL (2.5-4.5); Potassium 3.9 mmol/L (3.5-5.1); Sodium 140 mmol/L (136-145); Total Bilirubin 1.2 mg/dL (0.15-1.2); Total Protein 5.9 g/dL (6.6-8.7)
[2024-06-19 06:05] LABS: Thyroid Stimulating Hormone 2.24 uIU/mL (0.27-4.20)
[2024-06-19] MEDS: levothyroxine 50 mcg Tablet PO (06:09)
[2024-06-19 06:25] LABS: Estmated Average Glucose 146; Hemoglobin A1C 6.7 % (4.0-6.0)
[2024-06-19 07:23] LABS: Glucose Point of Care 177 mg/dL (70-110)
--- NOTE | 2024-06-19 08:03 | PC.PHAR ---
Pt does have an order for Methotrexate 2.5mg 4 tablets by mouth am and pm-last fill 11/12/23. It is on external med list but not filled since Nov.
[2024-06-19] MEDS: ipratropium-albuterol 3 mL Neb INHALATION ×3 (08:55→20:42)
[2024-06-19] MEDS: budesonide 0.5 mg/2 mL Neb INHALATION ×2 (08:55→20:42)
[2024-06-19] MEDS: insulin lispro 100 unit/1 mL SUBCUT ×3 (09:20→17:27)
[2024-06-19] MEDS: losartan 50 mg Tablet 25 MG PO (09:21)
[2024-06-19] MEDS: aspirin 81 mg EC Tablet PO (09:21)
[2024-06-19] MEDS: duloxetine 30 mg Capsule PO (09:21)
[2024-06-19] MEDS: enoxaparin 40 mg/0.4 mL Syringe SUBCUT (09:23)
--- NOTE | 2024-06-19 10:30 | P.PN_ITS ---
Subjective 2 Subjective: History and physical reviewed. Feels little bit better. Still coughing. Still feels weak. Medications: Reviewed: Yes Vitals/I&O/Wt Last Vital Signs Temp 98.2 F 06/19/24 08:38 Pulse 64 06/19/24 08:55 Resp 18 06/19/24 08:55 BP 166/95 06/19/24 09:21 Pulse Ox 92 06/19/24 08:55 O2 Del Method Nasal Cannula 06/19/24 08:55 O2 Flow Rate 3 06/19/24 08:55 06/18/24 06/19/24 06/19/24 22:59 06:59 14:59 Intake Total 1100 / 1100 626.25 / 626.25 Balance 1100 / 1100 626.25 / 626.25 Weight last 48 hrs Weight 75.892 kg Weight 73.936 kg Physical Exam 2 Narrative: General Exam is a tired appearing white female in no distress requiring 3 L of oxygen with a saturation of 92% Neck is supple Cardiovascular regular rate and rhythm without murmur Lungs few coarse breath sounds at the bases Abdomen is soft Extremities no cyanosis clubbing edema Data 06/19/24 04:58 06/19/24 04:58 Micro: Microbiology 06/19/24 05:02 Blood Culture - Preliminary Blood SPECIMEN COLLECTED 06/19/24 04:58 Blood Culture - Preliminary Blood SPECIMEN COLLECTED A&P Assessment and plan (1) Acute hypoxic respiratory failure: Wean oxygen as tolerated Secondary to COVID (2) Pneumonia due to COVID-19 virus: Continue remdesivir Continue dexamethasone CTA negative for thromboembolism DuoNeb and budesonide Add ceftriaxone for concern of possible superimposed bacterial infection Can discontinue IV fluids at this time. Plan Transaminitis. Likely viral. Full code Lovenox for DVT prophylaxis Attestations 2 Medical Necessity Statement*: Requires continued hospitalization for IV antiviral, IV steroids secondary to severe COVID-19 pneumonia. Diagnoses Acute hypoxic respiratory failure J96.01 Pneumonia due to COVID-19 virus U07.1; J12.82 Time Spent (min) 24
[2024-06-19] MEDS: cefTRIAXone 1,000 mg SDV 1000 MG IVP (10:50)
[2024-06-19 12:43] LABS: Glucose Point of Care 208 mg/dL (70-110)
[2024-06-19 17:19] LABS: Glucose Point of Care 166 mg/dL (70-110)
[2024-06-19 21:11] LABS: Glucose Point of Care 186 mg/dL (70-110)
[2024-06-20] VITALS (17 sets, daily range): BP systolic 124–161; BP diastolic 74–85; PULSE 63–80; RESP 15–21; TEMP 36.3–36.6; O2SAT 90–97
[2024-06-20 05:26] LABS: Basophils % 0.2 %; Eosinophils % 0.2 %; Lymphocytes # 0.4 10^3/uL (0.8-4.8); Lymphocytes % 7.5 %; Mean Corpuscular HGB Conc 32.9 g/dL (30-55); Mean Corpuscular Hemoglobin 30.8 pg (27-33); Mean Corpuscular Volume 93.6 fl (85-98); Mean Platelet Volume 10.4 fL (7.4-10.4); Monocytes # 0.3 10^3/uL (0.2-0.9); Monocytes % 5.1 %; Neutrophils # 4.74 10^3/uL (1.8-7.7); Neutrophils % 86.6 %; Nucleated Red Blood Cells % 0 %; Platelet Count 263 10^3/cmm (157-399); Red Blood Count 4.38 10^6/uL (3.85-5.65); Red Cell Distribution Width 13.7 % (12.1-15.1); White Blood Count 5.47 10^3/uL (3.29-11.43)
[2024-06-20 05:57] LABS: Blood Urea Nitrogen 13 mg/dL (8-23); Calcium 8.1 mg/dL (8.5-10.5); Carbon Dioxide 21 mmol/L (22-29); Chloride 105 mmol/L (98-107); Creatinine Clr Calc Pharmacy 54.5487; Glucose 207 mg/dL (65-115); Osmolality Calculated 288 mOsm/kg (285-295); Sodium 136 mmol/L (136-145)
[2024-06-20] MEDS: levothyroxine 50 mcg Tablet PO (06:06)
[2024-06-20 06:36] LABS: Glucose Point of Care 206 mg/dL (70-110)
[2024-06-20] MEDS: budesonide 0.5 mg/2 mL Neb INHALATION ×2 (08:10→20:28)
[2024-06-20] MEDS: ipratropium-albuterol 3 mL Neb INHALATION ×4 (08:10→20:28)
--- NOTE | 2024-06-20 08:39 | P.PN_ITS ---
Subjective 2 Subjective: No complaints today. Still on 3 L of oxygen. On this side is only 90%. Medications: Reviewed: Yes Vitals/I&O/Wt Last Vital Signs Temp 97.8 F 06/20/24 07:52 Pulse 74 06/20/24 08:10 Resp 16 06/20/24 08:10 BP 157/80 06/20/24 07:52 Pulse Ox 90 06/20/24 08:10 O2 Del Method Nasal Cannula 06/20/24 08:10 O2 Flow Rate 3 06/20/24 08:10 06/19/24 06/20/24 06/20/24 22:59 06:59 14:59 Intake Total 236 / 982.25 Balance 236 / 982.25 Weight last 48 hrs Weight 76.345 kg Weight 75.892 kg Weight 73.936 kg Physical Exam 2 Narrative: General Exam receiving a breathing treatment, on 3 L of oxygen Neck is supple Cardiovascular regular rate and rhythm without murmur Lungs few coarse breath sounds at the bases Abdomen is soft Extremities no cyanosis clubbing edema Data 06/20/24 04:46 06/20/24 04:46 Micro: Microbiology 06/18/24 20:06 Urine Culture - Preliminary Urine,Clean Catch 06/19/24 04:58 Blood Culture - Preliminary Blood NEGATIVE TO DATE 06/19/24 05:02 Blood Culture - Preliminary Blood NEGATIVE TO DATE A&P Assessment and plan (1) Acute hypoxic respiratory failure: Wean oxygen as tolerated Secondary to COVID Still on 3 L of oxygen (2) Pneumonia due to COVID-19 virus: Continue remdesivir Continue dexamethasone CTA negative for thromboembolism DuoNeb and budesonide Continue ceftriaxone for concern of possible superimposed bacterial infection IV fluids been discontinued Plan Transaminitis. Likely viral. Repeat tomorrow Full code Lovenox for DVT prophylaxis Still with risk of decompensation, no improvement overall with her hypoxia. Attestations 2 Medical Necessity Statement*: Needs continued hospitalization for IV remdesivir, dexamethasone secondary to severe COVID requiring oxygen Diagnoses Acute hypoxic respiratory failure J96.01 Pneumonia due to COVID-19 virus U07.1; J12.82 Time Spent (min) 24
[2024-06-20] MEDS: metoprolol tartrate 25 mg Tablet PO ×2 (08:57→17:25)
[2024-06-20] MEDS: aspirin 81 mg EC Tablet PO (08:57)
[2024-06-20] MEDS: duloxetine 30 mg Capsule PO (08:57)
[2024-06-20] MEDS: losartan 50 mg Tablet 25 MG PO (08:57)
[2024-06-20] MEDS: insulin lispro 100 unit/1 mL SUBCUT ×3 (08:58→17:25)
[2024-06-20] MEDS: enoxaparin 40 mg/0.4 mL Syringe SUBCUT (08:58)
[2024-06-20] MEDS: cefTRIAXone 1,000 mg SDV 1000 MG IVP (11:31)
[2024-06-20 11:38] LABS: Glucose Point of Care 258 mg/dL (70-110)
[2024-06-20 17:22] LABS: Glucose Point of Care 185 mg/dL (70-110)
[2024-06-20] MEDS: remdesivir 100 MG in sodium chloride 0.9% (100 ml) 80 ML IV (17:25)
[2024-06-20 20:59] LABS: Glucose Point of Care 107 mg/dL (70-110)
[2024-06-20] MEDS: pantoprazole 40 mg SDV IVP (23:52)
[2024-06-20] MEDS: dexamethasone 10 mg/mL INJ 6 MG IVP (23:53)
[2024-06-21] VITALS (10 sets, daily range): BP systolic 152–171; BP diastolic 81–86; PULSE 71–82; RESP 16–19; TEMP 36.4–36.5; O2SAT 92–94
[2024-06-21 05:25] LABS: Hematocrit 41.4 % (36-47); Lymphocytes # 0.4 10^3/uL (0.8-4.8); Lymphocytes % 7.7 %; Mean Corpuscular HGB Conc 33.3 g/dL (30-55); Mean Corpuscular Hemoglobin 30.9 pg (27-33); Mean Corpuscular Volume 92.8 fl (85-98); Mean Platelet Volume 10.3 fL (7.4-10.4); Monocytes # 0.3 10^3/uL (0.2-0.9); Monocytes % 5.1 %; Neutrophils # 4.92 10^3/uL (1.8-7.7); Neutrophils % 86.7 %; Nucleated Red Blood Cells % 0 %; Platelet Count 272 10^3/cmm (157-399); Red Blood Count 4.46 10^6/uL (3.85-5.65); White Blood Count 5.68 10^3/uL (3.29-11.43)
[2024-06-21 05:47] LABS: Alanine Aminotransferase 89 U/L (0-33); Albumin Level 2.4 g/dL (3.5-5.2); Alkaline Phosphatase 97 U/L (35-105); Anion Gap 15.2 (5-19); Aspartate Amino Transferase 139 U/L (0-32); Blood Urea Nitrogen 12 mg/dL (8-23); Calcium 8.1 mg/dL (8.5-10.5); Carbon Dioxide 22 mmol/L (22-29); Chloride 107 mmol/L (98-107); Creatinine Clr Calc Pharmacy 54.7918; Globulin 3.1 g/dL (1.3-4.6); Glucose 227 mg/dL (65-115); Osmolality Calculated 297 mOsm/kg (285-295); Potassium 4.2 mmol/L (3.5-5.1); Sodium 140 mmol/L (136-145); Total Bilirubin 0.6 mg/dL (0.15-1.2); Total Protein 5.5 g/dL (6.6-8.7)
[2024-06-21] MEDS: levothyroxine 50 mcg Tablet PO (06:16)
[2024-06-21 06:37] LABS: Glucose Point of Care 190 mg/dL (70-110)
[2024-06-21] MEDS: ipratropium-albuterol 3 mL Neb INHALATION ×2 (07:59→11:06)
[2024-06-21] MEDS: budesonide 0.5 mg/2 mL Neb INHALATION (07:59)
[2024-06-21] MEDS: aspirin 81 mg EC Tablet PO (08:15)
[2024-06-21] MEDS: duloxetine 30 mg Capsule PO (08:15)
[2024-06-21] MEDS: metoprolol tartrate 25 mg Tablet PO (08:15)
[2024-06-21] MEDS: losartan 50 mg Tablet 25 MG PO (08:16)
[2024-06-21] MEDS: enoxaparin 40 mg/0.4 mL Syringe SUBCUT (08:16)
[2024-06-21] MEDS: insulin lispro 100 unit/1 mL SUBCUT (08:16)
[2024-06-21] MEDS: cefTRIAXone 1,000 mg SDV 1000 MG IVP (10:44)
[2024-06-21 10:48] LABS: Glucose Point of Care 178 mg/dL (70-110)
--- NOTE | 2024-06-21 10:48 | P.DS_ITS ---
Discharge Providers Date of Admission: 06/18/24 22:55 Date of Discharge: June 21, 2024 Attending Provider at Admission: Logan Negron MD Attending Provider at Discharge: Kikr Espinoza MD Primary Care Provider: JONNA Carranza Diagnoses at Discharge Discharge Diagnosis (1) Acute hypoxic respiratory failure: Status: Acute (2) Pneumonia due to COVID-19 virus: Status: Acute Reason for Visit Reason for Visit: weakness covid positive Hospital Course Hospital Course Patient is 79-year-old white female who presented to the hospital with shortness of breath, cough, and previous recent history of COVID diagnosis. CTA demonstrated pattern consistent with COVID-pneumonia. No evidence of venous thromboembolism/PE was noted. Secondary to her immune suppressed state she was started on remdesivir, dexamethasone. IV antibiotic was also initiated for concern of possible superimposed bacterial infection. With this treatment she improved, and was on room air by June 21. It was thought she could go home, and continue to improve at home after her remdesivir on the June 21. She agreed with the plan, was able to ask questions. We discussed home health, but patient did not believe this would likely be necessary. She is to return for any concerns, follow-up with her primary care provider. Physical Exam Narrative: General exam no distress Neck is supple Cardiovascular regular rate and rhythm Lungs clear abdomen soft Extremities no sinus clubbing edema, rheumatoid changes noted Discharge Data Studies Completed and Pending Completed Studies During Hospitalization Category Date Time Status CT angio chest PE protcl [id number] Stat Cat Scan 06/18/24 22:39 Completed XR chest 1V portable [id number] Stat Exams 06/18/24 18:13 Completed Pending at discharge Category Date Time Status Blood Culture Routine Lab 06/19/24 05:02 Results Radiology Impressions Chest X-Ray 06/18/24 18:13 IMPRESSION: Moderate interstitial opacities in a predominantly peripheral distribution, new compared to prior study, compatible with history of COVID. Chest CTA 06/18/24 22:39 IMPRESSION: 1. No evidence of pulmonary embolism. 2. Extensive bilateral interstitial and ground-glass opacities in a predominantly peripheral distribution consistent with history of COVID. 3. Trace pleural effusions with adjacent atelectasis and/or small consolidations. Laboratory Results WBC 5.68 10^3/uL (3.29-11.43) 06/21/24 05:16 RBC 4.46 10^6/uL (3.85-5.65) 06/21/24 05:16 Hgb 13.80 g/dL (11.27-16.99) 06/21/24 05:16 Hct 41.4 % (36-47) 06/21/24 05:16 MCV 92.8 fl (85-98) 06/21/24 05:16 MCH 30.9 pg (27-33) 06/21/24 05:16 MCHC 33.3 g/dL (30-55) 06/21/24 05:16 RDW 14.0 % (12.1-15.1) 06/21/24 05:16 Plt Count 272 10^3/cmm (157-399) 06/21/24 05:16 MPV 10.3 fL (7.4-10.4) 06/21/24 05:16 Neut % (Auto) 86.7 % 06/21/24 05:16 Lymph % (Auto) 7.7 % 06/21/24 05:16 Ashley % (Auto) 5.1 % 06/21/24 05:16 Eos % (Auto) 0.0 % 06/21/24 05:16 Baso % (Auto) 0.0 % 06/21/24 05:16 Neut # (Auto) 4.92 10^3/uL (1.8-7.7) 06/21/24 05:16 Lymph # (Auto) 0.4 10^3/uL (0.8-4.8) L 06/21/24 05:16 Ashley # (Auto) 0.3 10^3/uL (0.2-0.9) 06/21/24 05:16 Eos # (Auto) 0.0 10^3/uL (0.0-0.8) 06/21/24 05:16 Baso # (Auto) 0.0 10^3/uL (0.0-0.1) 06/21/24 05:16 Nucleated RBC % (auto) 0 % 06/21/24 05:16 Nucleated RBCs # 0.0 /100WBC 06/21/24 05:16 D-Dimer 2.53 ug/mLFEU (0-0.59) H 06/18/24 18:16 Specimen Type Arterial 06/18/24 22:24 Sample Site Brachial, right 06/18/24 22:24 ABG pH 7.48 (7.35-7.45) H 06/18/24 22:24 ABG pCO2 30.7 mmHg (35-45) L 06/18/24 22:24 ABG pO2 67.2 mmHg (80.0-100.0) L 06/18/24 22:24 ABG HCO3 23.0 mmol/L (22-26) 06/18/24 22: ABG O2 Saturation 94.8 06/18/24 22:24 ABG Base Excess 0.4 mmol/L (-2.0-2.0) 06/18/24 22:24 Rasta Test N/a 06/18/24 22: A-a O2 Gradient 5.6 mmHg (5-10) 06/18/24 22:24 Hematocrit 44.2 % (37-47) 06/18/24 22:24 Hgb O2 Saturation 92.5 % (95-100) L 06/18/24 22:24 Carboxyhemoglobin 1.3 %THgb (0.4-20.1) 06/18/24 22:24 Methemoglobin 1.0 % (0.4-1.5) 06/18/24 22:24 Total Hemoglobin 14.4 g/dL (12-16) 06/18/24 22:24 Sodium 138.0 mmol/L (131-143) 06/18/24 22:24 Potassium 3.3 mmol/L (3.5-5.0) L 06/18/24 22:24 Glucose 109.0 mg/dL (70-115) 06/18/24 22:24 Ionized Calcium 1.1 mmol/L (1.1-1.4) 06/18/24 22:24 O2 Delivery Device Nc 06/18/24 22:24 O2 Liters/Min 2.0 % 06/18/24 22:24 Cloth Finishing Range Tender ID [email or web address] 06/18/24 22:24 Sodium 140 mmol/L (136-145) 06/21/24 05:16 Potassium 4.2 mmol/L (3.5-5.1) 06/21/24 05:16 Chloride 107 mmol/L (98-107) 06/21/24 05:16 Carbon Dioxide 22 mmol/L (22-29) 06/21/24 05:16 Anion Gap 15.2 (5-19) 06/21/24 05:16 BUN 12 mg/dL (8-23) 06/21/24 05:16 Creatinine 0.7 mg/dL (0.5-0.9) 06/21/24 05:16 GFR Calculation Not Reportable 06/21/24 05:16 Glucose 227 mg/dL (65-115) H 06/21/24 05:16 POC Glucose 190 mg/dL (70-110) H 06/21/24 06:34 Estimat Average Glucose 146 06/19/24 04:58 Hemoglobin A1c 6.7 % (4.0-6.0) H 06/19/24 04:58 Calculated Osmolality 297 mOsm/kg (285-295) H 06/21/24 05:16 Lactic Acid 1.8 mmol/L (0.5-2.2) 06/18/24 23:24 Calcium 8.1 mg/dL (8.5-10.5) L 06/21/24 05:16 Phosphorus 2.3 mg/dL (2.5-4.5) L 06/19/24 04:58 Magnesium 1.9 mg/dL (1.7-2.3) 06/19/24 04:58 Total Bilirubin 0.6 mg/dL (0.15-1.2) 06/21/24 05:16 AST 139 U/L (0-32) H 06/21/24 05:16 ALT 89 U/L (0-33) H 06/21/24 05:16 Alkaline Phosphatase 97 U/L (35-105) 06/21/24 05:16 Troponin T Baseline 19 ng/L (0-10) H 06/18/24 18:16 Troponin T 120 Minute 17.24 ng/L (0-10) H 06/18/24 20:45 Delta Troponin T -1.76 ABS# (0-10) L 06/18/24 20:45 Troponin T Hi Sens 6Hr 17.43 ng/L (0-10) H 06/19/24 00:30 Troponin T Hi Sens 6Hr Delta -1.57 ng/L (0-12) L 06/19/24 00:30 C-Reactive Protein 71.5 mg/L (0.0-4.9) H 06/18/24 20:45 NT-Pro-B Natriuret Pep 852 pg/mL (0-450) H 06/18/24 20:45 Total Protein 5.5 g/dL (6.6-8.7) L 06/21/24 05:16 Albumin 2.4 g/dL (3.5-5.2) L 06/21/24 05:16 Globulin 3.1 g/dL (1.3-4.6) 06/21/24 05:16 Procalcitonin 0.31 ng/mL (0-0.5) 06/18/24 20:45 TSH 2.24 uIU/mL (0.27-4.20) 06/19/24 04:58 Urine Color Yellow (Yellow) 06/18/24 20:06 Urine Appearance Cloudy (CLEAR) A 06/18/24 20:06 Urine pH 6 (5-7) 06/18/24 20:06 Ur Specific [place] 1.010 (1.005-1.030) 06/18/24 20:06 Urine Protein 1+ (Negative) H 06/18/24 20:06 Urine Glucose (UA) Norm (Normal) 06/18/24 20:06 Urine Ketones Negative (Negative) 06/18/24 20:06 Urine Blood Neg (Negative) 06/18/24 20:06 Urine Nitrate Negative (Negative) 06/18/24 20:06 Urine Bilirubin Neg (Negative) 06/18/24 20:06 Urine Urobilinogen 8 mg/dL (Negative) H 06/18/24 20:06 Ur Leukocyte Esterase Negative (Negative) 06/18/24 20:06 Urine RBC None /hpf (0-2) 06/18/24 20:06 Urine WBC 5-10 /hpf (0-5) H 06/18/24 20:06 Ur Squamous Epith Cells 5-10 /hpf (0-5) H 06/18/24 20:06 Amorphous Sediment Not Reportable 06/18/24 20:06 Urine Bacteria 4+ /hpf (NONE) H 06/18/24 20:06 Urine Mucus 2+ /hpf 06/18/24 20:06 Vitals Last Vital Signs Temp 97.6 F 06/21/24 07:40 Pulse 82 06/21/24 08:08 Resp 16 06/21/24 08:00 BP 156/81 06/21/24 08:16 Pulse Ox 93 06/21/24 08:00 O2 Del Method Room Air 06/21/24 08:00 O2 Flow Rate 1 06/20/24 15:30 Discharge Plan Discharge Patient Disposition: Home Condition: Stable Prescriptions: New cefdinir 300 mg capsule 300 mg PO BID 5 Days Qty: 10 0RF Continued aspirin 81 mg tablet,delayed release (DR/EC) 81 mg PO QDAY magnesium aspart,citrate,oxide 400 mg magnesium capsule 400 mg PO DAILY Hold Instructions: Hold loose stool potassium citrate 99 mg capsule 99 mg PO DAILY cholecalciferol (vitamin D3) 50 mcg (2,000 unit) capsule 50 mcg PO DAILY cetirizine 10 mg tablet 10 mg PO DAILY Qty: 30 5RF levothyroxine 50 mcg tablet 50 mcg PO DAILY Qty: 90 1RF metoprolol tartrate 25 mg tablet 25 mg PO BID Qty: 60 5RF albuterol sulfate [Ventolin HFA] 90 mcg/actuation HFA aerosol inhaler 2 puff inhalation Q6H PRN (Reason: shortness of breath or wheezing) Qty: 8.5 2RF prednisone 20 mg tablet See Rx Instructions PO .COMPLEX PRN (Reason: joint pain flare) Qty: 30 1RF Rx Instructions: Take 1 or 2 tablets daily for 3-7 days as needed for arthritis flare. prednisone 5 mg tablet 5 mg PO DAILY Qty: 90 1RF dapagliflozin propanediol [Farxiga] 10 mg tablet 10 mg PO QAM Qty: 30 2RF metformin 500 mg tablet extended release 24 hr 500 mg PO DAILY Qty: 30 2RF Hold Instructions: Loose stool valsartan [Diovan] 80 mg tablet 80 mg PO DAILY Qty: 30 2RF tamsulosin [Flomax] 0.4 mg capsule 0.4 mg PO BEDTIME Qty: 30 2RF Complete Multivitamin-Mineral 18-400 mg-mcg Tablet 1 tab PO QAM omega 6-czl-luu-fish oil [Fish Oil] 1,000 mg (120 mg-180 mg) Capsule 1 cap PO DAILY pantoprazole 20 mg tablet,delayed release (DR/EC) See Rx Instructions .ROUTE .COMPLEX Rx Instructions: TAKE ONE TABLET BY MOUTH DAILY 30 MINUTES BEFORE meals ON EMPTY stomach Discontinued Enbrel 50 mg/mL (1 mL) syringe 50 mg SUBCUT .Q7days Qty: 4 5RF Hold Instructions: Resume on 03/24/24. 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 Dose will be moved up to 2 PM Return for any concerns Discharge Attestations Time Spent in Discharge Care*: greater than 30 min Quality Metrics Clinical Quality Measures [ No reported AMI, CVA or VTE this stay] Coding Level of Care Code 73893 Total time (in minutes) for Discharge: 34 Diagnoses Acute hypoxic respiratory failure J96.01 Pneumonia due to COVID-19 virus U07.1; J12.82
[2024-06-21] MEDS: remdesivir 100 MG in sodium chloride 0.9% (100 ml) 80 ML IV (14:35)
== END 2024-06-21 15:50 | disposition home or self-care (01) | DRG 177 ==
LOC: ER 22:55 → MEDSURG 22:59
PROVIDERS: Admitting Provider Family Medicine; Emergency Provider Physician Assistant; PCP Nurse Practitioner; Visit Provider Internal Medicine
DX: U07.1 COVID-19 (principal); J12.82 Pneumonia due to coronavirus disease 2019; J96.01 Acute respiratory failure with hypoxia; D84.821 Immunodeficiency due to drugs; E11.9 Type 2 diabetes mellitus without complications; M05.79 Rheumatoid arthritis with rheumatoid factor of multiple sites without organ or systems involvement; I10 Essential (primary) hypertension; E03.9 Hypothyroidism, unspecified; Z79.82 Long term (current) use of aspirin; Z79.84 Long term (current) use of oral hypoglycemic drugs; Z79.52 Long term (current) use of systemic steroids; Z79.899 Other long term (current) drug therapy
CPT/HCPCS: 36415; 36416; 36600; 71045; 71275; 80048; 80051; 80053; 81001; 82330; 82805; 82962; 83036; 83605; 83735; 83880; 84100; 84145; 84443; 84484; 85025; 85378; 86140; 87040; 87086; 93005; 94640; 94664; 96360; 96372; 99285; J0248; J0696; J1100; J1650; J1815; J2470; J7030; J7626

== ENCOUNTER → 2024-07-14 10:35 | Outpatient (BNVA) | payer MEDICARE, SELFPAY | PROVIDERS: PCP Nurse Practitioner; Visit Provider Nurse Practitioner | DX: E11.65 Type 2 diabetes mellitus with hyperglycemia (principal); E03.8 Other specified hypothyroidism; N39.0 Urinary tract infection, site not specified | CPT/HCPCS: 80053; 81000; 84439; 84443; 84481; 87086 ==

== ENCOUNTER 2024-09-17 14:09 | Outpatient (CLI) | payer MEDICARE, SELFPAY ==
--- NOTE | 2024-09-17 14:14 | XR_ITS ---
WS: [id number] Chest 2 views, 09/17/2024 Clinical Data: U07.1 - COVID-19 Comparison: Portable chest, 06/18/2024 Findings: The peripheral opacities have almost totally cleared. There is a small residual in the late ral aspect of the right upper lobe and a minimal residual in the lateral aspect of the lingula. No no dules, masses or effusions are seen. The heart is normal. The pulmonary vascularity is not increased. No pneumonia or pneumothorax is seen. The aortic arch shows calcification. XR/XR chest 2V* [id number] Impression: 1. Almost total clearing of peripheral opacities. 2. Atherosclerosis.
[2024-09-17 14:32] LABS: Basophils % 0.2 %; Eosinophils % 0.1 %; Lymphocytes # 2.2 10^3/uL (0.8-4.8); Lymphocytes % 17.2 %; Mean Corpuscular HGB Conc 32.4 g/dL (30-55); Mean Corpuscular Hemoglobin 30.8 pg (27-33); Mean Corpuscular Volume 95.1 fl (85-98); Mean Platelet Volume 10.4 fL (7.4-10.4); Monocytes # 0.7 10^3/uL (0.2-0.9); Monocytes % 5.3 %; Neutrophils # 9.77 10^3/uL (1.8-7.7); Neutrophils % 76.5 %; Nucleated Red Blood Cells % 0 %; Platelet Count 320 10^3/cmm (157-399); Red Blood Count 5.36 10^6/uL (3.85-5.65); Red Cell Distribution Width 13.8 % (12.1-15.1); White Blood Count 12.76 10^3/uL (3.29-11.43)
[2024-09-17 14:38] LABS: Erythrocyte Sedimentation Rate 17 mm/hr (0-15)
[2024-09-17 14:43] LABS: Estmated Average Glucose 148; Hemoglobin A1C 6.8 % (4.0-6.0)
[2024-09-17 14:49] LABS: Alanine Aminotransferase 145 U/L (0-33); Albumin Level 3.9 g/dL (3.5-5.2); Alkaline Phosphatase 79 U/L (35-105); Aspartate Amino Transferase 87 U/L (0-32); Globulin 3.5 g/dL (1.3-4.6); Total Bilirubin 0.5 mg/dL (0.15-1.2); Total Protein 7.4 g/dL (6.6-8.7)
== END 2024-09-17 14:10 | disposition home or self-care (01) ==
LOC: LAB 14:13
PROVIDERS: PCP Nurse Practitioner; Visit Provider Internal Medicine Rheumatology
DX: U07.1 COVID-19 (principal); J12.82 Pneumonia due to coronavirus disease 2019; E11.9 Type 2 diabetes mellitus without complications; M05.79 Rheumatoid arthritis with rheumatoid factor of multiple sites without organ or systems involvement; Z79.899 Other long term (current) drug therapy; I70.90 Unspecified atherosclerosis
CPT/HCPCS: 36415; 71046; 80076; 82565; 83036; 85025; 85651; 86140

== ENCOUNTER → 2024-11-06 12:17 | Outpatient (BNVA) | payer MEDICARE, SELFPAY | PROVIDERS: PCP Nurse Practitioner; Visit Provider Internal Medicine Rheumatology | DX: M05.79 Rheumatoid arthritis with rheumatoid factor of multiple sites without organ or systems involvement (principal); Z79.899 Other long term (current) drug therapy; Z13.820 Encounter for screening for osteoporosis; Z71.89 Other specified counseling; R79.89 Other specified abnormal findings of blood chemistry; K76.0 Fatty (change of) liver, not elsewhere classified | CPT/HCPCS: 99214 ==

== ENCOUNTER → 2024-12-25 12:09 | Outpatient (BNVA) | payer MEDICARE, SELFPAY | PROVIDERS: PCP Nurse Practitioner; Visit Provider Nurse Practitioner | DX: E11.9 Type 2 diabetes mellitus without complications (principal); E11.65 Type 2 diabetes mellitus with hyperglycemia; E03.8 Other specified hypothyroidism | CPT/HCPCS: 80053; 80061; 81003; 82607; 83036; 84443; 87086 ==

== ENCOUNTER → 2025-03-02 11:16 | Outpatient (BNVA) | payer MEDICARE, SELFPAY | PROVIDERS: PCP Nurse Practitioner; Visit Provider Internal Medicine Rheumatology | DX: M05.79 Rheumatoid arthritis with rheumatoid factor of multiple sites without organ or systems involvement (principal); Z79.899 Other long term (current) drug therapy; Z13.820 Encounter for screening for osteoporosis; Z71.89 Other specified counseling | CPT/HCPCS: 99214 ==

== ENCOUNTER → 2025-06-03 13:56 | Outpatient (BNVA) | payer MEDICARE, SELFPAY | PROVIDERS: PCP Nurse Practitioner; Visit Provider Internal Medicine Rheumatology | DX: Z79.899 Other long term (current) drug therapy (principal) | CPT/HCPCS: 80076; 82565; 85025; 85651; 86140 ==

== ENCOUNTER → 2025-06-23 13:48 | Outpatient (BNVA) | payer MEDICARE, SELFPAY | PROVIDERS: PCP Nurse Practitioner; Visit Provider Nurse Practitioner | DX: E11.9 Type 2 diabetes mellitus without complications (principal); E03.8 Other specified hypothyroidism | CPT/HCPCS: 81000; 82043 ==

== ENCOUNTER → 2025-08-03 11:09 | Outpatient (BNVA) | payer MEDICARE, SELFPAY | PROVIDERS: PCP Nurse Practitioner; Visit Provider Nurse Practitioner | DX: E11.9 Type 2 diabetes mellitus without complications (principal); E03.8 Other specified hypothyroidism; R79.89 Other specified abnormal findings of blood chemistry; E55.9 Vitamin D deficiency, unspecified | CPT/HCPCS: 80053; 80061; 82306; 82565; 82607; 83036; 84439; 84443; 84481; 84520 ==